=== PATIENT | female | born 1975 | race Caucasian/White ===

== ENCOUNTER 2016-04-05 22:58 | Inpatient (IN) | payer OTHER ==
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
--- NOTE | 2016-04-06 00:03 | DX ---
Left Foot, 3 Views, at 11:31 p.m. Clinical History: 40-year-old female with pain. Comparison Study: None. Findings: There is soft tissue swelling involving the distal extremity, most pronounced over the mid and forefoot. There is no ankle joint effusion appreciated. The bone mineralization is preserved, wit h no marginal erosion. There is no fracture or dislocation identified. The tarsometatarsal alignment is anatomic. There is an unfused os peroneum lateral to the cuboid. There is a normal-variant bone is land associated with the 5th digit distal phalanx. There are tiny posterior calcaneal enthesophytes a t the Achilles tendon and plantar aponeurosis insertion points. Impression: Soft tissue swelling, with no acute osseous abnormality identified.
--- NOTE | 2016-04-06 00:18 | US ---
Venous Duplex Doppler Study of the Left Lower Extremity Clinical Indications: 40-year-old female in the ED with left leg swelling. Rule out DVT. Technique: A high-frequency transducer was used for imaging and Doppler study of the deep veins of th e left leg, from the upper calf to the groin. Pulsed Doppler and color Doppler were utilized, along with various maneuvers, to assess flow in the deep veins. Cursory evaluation of the right common femo ral vein was obtained for comparison purposes, and is normal. Comparison Exam: None. Findings: The deep veins of the left groin, thigh, knee, and upper calf are well-displayed, and are normally compressible. Doppler flow patterns are unremarkable. There is no evidence of deep venous thrombosis. There is normal compression of the greater saphenous vein, without superficial thrombosis . The popliteal fossa is unremarkable. Impression: There is no sonographic evidence of deep or superficial vein thrombosis in the left leg. Results were conveyed to Martín Lee PA-C. A test result has been communicated to a licensed care provider and documented in [facility], 12:15:18 A M, 04/06/2016, [employer] Message ID [id number].
[2016-04-06 00:25] LABS: % IMMATURE GRANULYOCYTES 0.2 % (0.0-1.1); ABSOLUTE IMMATURE GRANULOCYTES 0.03 10^3/uL (0.00-0.10); ADD DIFF? NO; ADD MORPH? NO; ADD SCAN? NO; ATYPICAL LYMPHOCYTE FLAG 10 (0-99); FRAGMENT RBC FLAG 0 (0-99); HEMATOCRIT 44.4 % (38.0-47.0); HEMOGLOBIN 14.9 g/dL (12.6-16.3); LEFT SHIFT FLG 0 (0-99); LIPEMIA HEMOLYSIS FLAG 80 (0-99); MEAN CELL HEMOGLOBIN 27.8 pg (27.9-34.1); MEAN CELL HEMOGLOBIN CONCENTR. 33.6 g/dL (32.4-36.7); MEAN CELL VOLUME 82.8 fL (81.5-99.8); MEAN PLATELET VOLUME 11.7 fL (8.7-11.7); PLATELET CLUMPS FLAG 0 (0-99); PLATELET COUNT 216 10^3/uL (150-400); RED BLOOD CELL COUNT 5.36 10^6/uL (4.18-5.33); RED CELL DISTRIBUTION WIDTH 14.5 % (11.5-15.2)
[2016-04-06] MEDS ORDERED: VANCOMYCIN HCL/NORMAL SALINE 250 ML IV ONE (00:45)
[2016-04-06 00:47] LABS: ANION GAP 11 mEq/L (8-16); C-REACTIVE PROTEIN 69.6 mg/L (<10.0); CALCIUM 8.8 mg/dL (8.5-10.4); CARBON DIOXIDE 26 mEq/l (22-31); CHLORIDE 99 mEq/L (97-110); CREATININE 0.6 mg/dL (0.6-1.0); GLOMERULAR FILTRATION RATE > 60; GLUCOSE 111 mg/dL (70-100); SODIUM 136 mEq/L (134-144)
[2016-04-06 00:48] LABS: SEDIMENTATION RATE 16 MM/HR (0-20)
[2016-04-06] MEDS ORDERED: CLINDAMYCIN 150MG PREPACK#6 BTL TAKEHOME ONE ×2 (01:18→01:19)
[2016-04-06] MEDS ORDERED: CLINDAMYCIN 600 MG/DEXTROSE 50 ML IV ONE (02:07)
[2016-04-06] MEDS ORDERED: NS 1,000 ML IV SCH (03:15)
--- NOTE | 2016-04-06 03:23 | PDGENHP ---
History and Physical - Chief Complaint foot pain - History of Present Illness Patient is 40/F with Madelyn Danlos Syndrome, chronic pain with chronic opioid dependence and IVDU who presents to the ED complaining of L foot pain. Patient states symptoms started about 4 days ago with swelling of the dorsum of her foot , the following day the area became red and painful and over the next 3 days pain continued to intensify. She denies any obvious trauma to the area, but also states she frequently sleep walks and could have traumatized the foot without recognizing it. Also, patient reports crushing oxycodone and injecting it, and sometimes heroin, occasionally using the veins in her feet, although she denies doing this recently. On arrival to the ED, patient was afebrile, but tachycardic, otherwise hemodynamically stable. Labs revealed leukocytosis, elevated CRP. LE doppler was negative for DVT and L foot x-ray did not show evidence of fracture or osteomyelitis. She was given IVF resuscitation, Vancomycin and IV clindamycin, and admitted to the hospitalist service for further management. History Information - Allergies/Home Medication List Allergies/Adverse Reactions: No Known Allergies Allergy (Unverified 04/05/16 23:03) Home Medications: Cyclobenzaprine [Flexeril 10 MG (*)] 10 - 20 mg PO TID PRN 12/30/14 [Last Taken 12/27/14] Pregabalin [Lyrica] 150 mg PO DAILY 12/30/14 [Last Taken 12/27/14] Pregabalin [Lyrica] 300 mg PO HS 12/30/14 [Last Taken 12/27/14] fentaNYL [Duragesic 100 MCG Patch (*)] 100 mcg TD Q48H 12/30/14 [Last Taken 11/04] oxyCODONE IR [Oxycodone Ir (*)] 15 - 30 mg PO HS PRN 12/30/14 [Last Taken ] oxyCODONE IR [Oxycodone Ir (*)] 15 mg PO BID@, PRN 12/30/14 [Last Taken 10/04] Clonidine 12/05/15 [Last Taken Unknown] Flexeril 04/05/16 [Last Taken Unknown] Tizanidine HCl 04/05/16 [Last Taken Unknown] I have personally reviewed and updated: family history, medical history, social history, surgical history - Past Medical History Additional medical history: Madelyn Danlos Syndrome. Chronic pain syndrome. chronic opioid dependence/abuse. degenerative disc disease. chronic migraine headache. ? crohn's disease, reportedly well controlled - Surgical History Additional surgical history: hysterectomy with BSO. appendectomy. b/l breast augmentation - Family History Additional family history: M: breast ca, HTN - Social History Smoking Status: Light smoker (1/2 PPD currently, formerly 1-2 PPD x 20 years) Alcohol Use: None Drug Use: Heroin (heroin and opioid pill abuse with active IV use) Additional social history: Patient currently lives alone in [place]. Currently on disability, formerly worked in sales. Review of Systems ROS: 10pt was reviewed & negative except for what was stated in HPI & below Physical Exam Temp Pulse Resp BP Pulse Ox 36.8 C 102 H 18 102/58 L 97 04/06/16 02:46 04/06/16 02:46 04/06/16 02:46 04/06/16 02:46 04/06/16 02:46 Constitutional: no apparent distress, appears nourished, not in pain Eyes: PERRL, anicteric sclera, EOMI Ears, Nose, Mouth, Throat: moist mucous membranes, hearing normal, ears appear normal, no oral mucosal ulcers Cardiovascular: regular rate and rhythym, no murmur, rub, or gallop, pulses symmetric bilaterally, tachycardia, edema (L foot 2+ edema to ankle), No JVD Peripheral Pulses: 2+: dorsalis-pedis (R), dorsalis-pedis (L) Respiratory: no respiratory distress, no rales or rhonchi, clear to auscultation Gastrointestinal: normoactive bowel sounds, soft, non-tender abdomen, no palpable masses, No hepatosplenomegally, No guarding, No rebound Genitourinary: no bladder fullness, no bladder tenderness Skin: other (L foot: 2+ pitting edema, dorsum of foot with erythema, warmth and tenderness to palpation, extending to proximal ankle) Musculoskeletal: full muscle strength, no muscle tenderness, normal joint ROM, no joint effusions Neurologic: AAOx3, sensation intact bilaterally, CN II-XII Intact, No weakness, No numbness Lab Data & Imaging Review 04/06/16 05:04 04/06/16 05:04 WBC 13.08 10^3/uL (3.80-9.50) H 04/06/16 00:10 RBC 5.36 10^6/uL (4.18-5.33) H 04/06/16 00:10 Hgb 14.9 g/dL (12.6-16.3) 04/06/16 00:10 Hct 44.4 % (38.0-47.0) 04/06/16 00:10 MCV 82.8 fL (81.5-99.8) 04/06/16 00:10 MCH 27.8 pg (27.9-34.1) L 04/06/16 00:10 MCHC 33.6 g/dL (32.4-36.7) 04/06/16 00:10 RDW 14.5 % (11.5-15.2) 04/06/16 00:10 Plt Count 216 10^3/uL (150-400) 04/06/16 00:10 MPV 11.7 fL (8.7-11.7) 04/06/16 00:10 Neut % (Auto) 68.4 % (39.3-74.2) 04/06/16 00:10 Lymph % (Auto) 21.1 % (15.0-45.0) 04/06/16 00:10 [place] % (Auto) 7.0 % (4.5-13.0) 04/06/16 00:10 Eos % (Auto) 2.8 % (0.6-7.6) 04/06/16 00:10 Baso % (Auto) 0.5 % (0.3-1.7) 04/06/16 00:10 Nucleat RBC Rel Count 0.0 % (0.0-0.2) 04/06/16 00:10 Absolute Neuts (auto) 8.94 10^3/uL (1.70-6.50) H 04/06/16 00:10 Absolute Lymphs (auto) 2.76 10^3/uL (1.00-3.00) 04/06/16 00:10 Absolute Monos (auto) 0.91 10^3/uL (0.30-0.80) H 04/06/16 00:10 Absolute Eos (auto) 0.37 10^3/uL (0.03-0.40) 04/06/16 00:10 Absolute Basos (auto) 0.07 10^3/uL (0.02-0.10) 04/06/16 00:10 Absolute Nucleated RBC 0.00 10^3/uL (0-0.01) 04/06/16 00:10 Immature Gran % 0.2 % (0.0-1.1) 04/06/16 00:10 Immature Gran # 0.03 10^3/uL (0.00-0.10) 04/06/16 00:10 ESR 16 MM/HR (0-20) 04/06/16 00:10 Sodium 136 mEq/L (134-144) 04/06/16 00:10 Potassium 4.0 mEq/L (3.5-5.2) 04/06/16 00:10 Chloride 99 mEq/L (97-110) 04/06/16 00:10 Carbon Dioxide 26 mEq/l (22-31) 04/06/16 00:10 Anion Gap 11 mEq/L (8-16) 04/06/16 00:10 BUN 11 mg/dL (7-23) 04/06/16 00:10 Creatinine 0.6 mg/dL (0.6-1.0) 04/06/16 00:10 Estimated GFR > 60 04/06/16 00:10 Glucose 111 mg/dL (70-100) H 04/06/16 00:10 Calcium 8.8 mg/dL (8.5-10.4) 04/06/16 00:10 Creatine Kinase 38 IU/L (0-156) 04/06/16 00:10 C-Reactive Protein 69.6 mg/L (<10.0) H 04/06/16 00:10 Visualized and Interpreted imaging results: Yes Interpretation: L foot: no obvious bony abnormality. LE doppler: neg for DVT Assessment & Plan Assessment: Patient is 40/F with EDS, chronic pain and chronic opioid use, with active IV drug abuse who presents to the ED with L foot pain, swelling and erythema, consistent with acute cellulitis. Plan: # sepsis secondary to L foot cellulitis Patient presents with tachycardia, leukocytosis and L foot cellulitis as source of infection, consistent with sepsis. No evidence of end organ damage on presentation. Patient cultured and given IV antibiotics in ED. - f/u blood cultures - cont Clindamycin 600 IV q6h - pain control with tylenol prn - IVF: NS @ 100 cc/hr - check lactic acid # chronic pain, chronic opioid abuse, IVDU Patient acknowledges IVDU is a problem, but states she only uses IV when her MD tries to down-titrate her prescribed opioids. PDMP site checked, seems patient was last prescribed opioids in 12/2015 (query report in paper chart). Will try to avoid opioid pain meds during this admission and refer to addiction services on discharge. - once confirmed, can continue patient's non-opioid pain med regimen # dispo: admit under observation status # full code
[2016-04-06 05:13] LABS: % IMMATURE GRANULYOCYTES 0.3 % (0.0-1.1); ABSOLUTE IMMATURE GRANULOCYTES 0.04 10^3/uL (0.00-0.10); ADD DIFF? NO; ADD MORPH? NO; ADD SCAN? NO; ATYPICAL LYMPHOCYTE FLAG 10 (0-99); FRAGMENT RBC FLAG 0 (0-99); HEMATOCRIT 38.2 % (38.0-47.0); HEMOGLOBIN 12.6 g/dL (12.6-16.3); LEFT SHIFT FLG 0 (0-99); LIPEMIA HEMOLYSIS FLAG 80 (0-99); MEAN CELL HEMOGLOBIN 27.7 pg (27.9-34.1); MEAN PLATELET VOLUME 11.7 fL (8.7-11.7); PLATELET CLUMPS FLAG 0 (0-99); PLATELET COUNT 195 10^3/uL (150-400); RED BLOOD CELL COUNT 4.55 10^6/uL (4.18-5.33); RED CELL DISTRIBUTION WIDTH 14.6 % (11.5-15.2)
[2016-04-06] MEDS: CLINDAMYCIN 600 MG/DEXTROSE 50 ML IV SCH ×3 (05:18→21:18)
[2016-04-06 05:30] LABS: ALANINE AMINOTRANSFERASE 25 IU/L (9-52); ALBUMIN 2.9 g/dL (3.5-5.0); ALKALINE PHOSPHATASE 91 IU/L (38-126); ANION GAP 6 mEq/L (8-16); ASPARTATE AMINOTRANSFERASE 18 IU/L (14-46); BILIRUBIN,TOTAL 0.5 mg/dL (0.1-1.4); CALCIUM 7.8 mg/dL (8.5-10.4); CARBON DIOXIDE 26 mEq/l (22-31); CHLORIDE 105 mEq/L (97-110); CREATININE 0.6 mg/dL (0.6-1.0); GLOMERULAR FILTRATION RATE > 60; GLUCOSE 108 mg/dL (70-100); POTASSIUM 4.2 mEq/L (3.5-5.2); SODIUM 137 mEq/L (134-144); TOTAL PROTEIN 5.6 g/dL (6.3-8.2)
[2016-04-06] MEDS: NICOTINE 14 MG/24 HR PATCH TD SCH (08:07)
[2016-04-06] MEDS: ACETAMINOPHEN 500 MG TAB PO PRN ×2 (08:07→23:19)
[2016-04-06] MEDS ORDERED: KETOROLAC 30 MG/1 ML SDV IVP ONE (10:33)
[2016-04-06] MEDS ORDERED: ONDANSETRON DISINTEGRATING 4 MG TAB PO PRN (10:36)
[2016-04-06] MEDS ORDERED: fentaNYL 75 MCG PATCH TD SCH (11:00)
[2016-04-06] MEDS: NS W/ 20 KCl/L 1,000 ML IV SCH ×2 (11:15→21:28)
[2016-04-06] MEDS: PROMETHAZINE HCL 25 MG TAB PO PRN (11:15)
[2016-04-06] MEDS: oxyCODONE IR 15 MG TAB PO SCH ×2 (14:42→21:17)
[2016-04-06] MEDS: PREGABALIN 50 MG CAP PO SCH ×2 (14:42→21:17)
[2016-04-06] MEDS: KETOROLAC 15 MG/1 ML SDV IVP SCH ×2 (17:31→23:20)
[2016-04-06] MEDS: VANCOMYCIN HCL/NORMAL SALINE 250 ML IV SCH (17:32)
[2016-04-06] MEDS: NORTRIPTYLINE HCL 50 MG CAP PO SCH (21:27)
[2016-04-07] MEDS: KETOROLAC 15 MG/1 ML SDV IVP SCH ×3 (05:01→18:46)
[2016-04-07] MEDS: VANCOMYCIN HCL/NORMAL SALINE 250 ML IV SCH ×2 (05:02→18:46)
[2016-04-07] MEDS: CLINDAMYCIN 600 MG/DEXTROSE 50 ML IV SCH ×3 (05:02→20:49)
[2016-04-07] MEDS: PROMETHAZINE HCL 25 MG TAB PO PRN (05:07)
[2016-04-07 05:17] LABS: % IMMATURE GRANULYOCYTES 0.1 % (0.0-1.1); ABSOLUTE IMMATURE GRANULOCYTES 0.01 10^3/uL (0.00-0.10); ADD DIFF? NO; ADD MORPH? NO; ADD SCAN? NO; ATYPICAL LYMPHOCYTE FLAG 0 (0-99); FRAGMENT RBC FLAG 0 (0-99); HEMATOCRIT 35.7 % (38.0-47.0); HEMOGLOBIN 11.4 g/dL (12.6-16.3); LEFT SHIFT FLG 0 (0-99); LIPEMIA HEMOLYSIS FLAG 80 (0-99); MEAN CELL HEMOGLOBIN 27.6 pg (27.9-34.1); MEAN CELL HEMOGLOBIN CONCENTR. 31.9 g/dL (32.4-36.7); MEAN CELL VOLUME 86.4 fL (81.5-99.8); MEAN PLATELET VOLUME 11.7 fL (8.7-11.7); PLATELET CLUMPS FLAG 30 (0-99); PLATELET COUNT 147 10^3/uL (150-400); RED BLOOD CELL COUNT 4.13 10^6/uL (4.18-5.33); RED CELL DISTRIBUTION WIDTH 14.7 % (11.5-15.2)
[2016-04-07 05:28] LABS: ANION GAP 5 mEq/L (8-16); CALCIUM 7.9 mg/dL (8.5-10.4); CARBON DIOXIDE 27 mEq/l (22-31); CHLORIDE 109 mEq/L (97-110); CREATININE 0.6 mg/dL (0.6-1.0); GLOMERULAR FILTRATION RATE > 60; GLUCOSE 95 mg/dL (70-100); SODIUM 141 mEq/L (134-144)
[2016-04-07] MEDS: oxyCODONE IR 15 MG TAB PO PRN ×2 (06:15→16:16)
[2016-04-07] MEDS: PREGABALIN 50 MG CAP PO SCH ×3 (08:05→20:45)
[2016-04-07] MEDS: NORTRIPTYLINE HCL 50 MG CAP PO SCH ×2 (08:05→20:43)
[2016-04-07] MEDS: NICOTINE 14 MG/24 HR PATCH TD SCH (08:06)
--- NOTE | 2016-04-07 15:31 | HOSPPROG ---
Hospitalist Progress Note Assessment/Plan: 40-year-old female admitted with a left foot abscess. She has a history of narcotic dependence and a history of IV drug abuse. She denies injection into the left foot. -left foot cellulitis and possible abscess. The area of redness may be extending beyond the initial area as noted by markings on her foot. There is no ascending lymphangitis or cellulitis although the area is tender and possibly fluctuant on the dorsum of the foot. She is receiving clindamycin and vancomycin with a trough on vancomycin tomorrow morning. An MRI with and without contrast will be done to assess for abscess and Dr. Arce for podiatry will see the patient today. -narcotic dependence. We are continuing her usual pain medication regime without of increase in her narcotic use. Subjective: Reports that the foot is tender and painful but less so than previously. No complaints of fever cough shortness of breath chest pain nausea or vomiting. There is no history that she has had tremulousness agitation confusion or any signs of withdrawal. Objective: Vital Signs Temp Pulse Resp BP Pulse Ox 36.8 C 104 H 16 122/79 H 94 04/07/16 15:20 04/07/16 15:20 04/07/16 15:20 04/07/16 15:20 04/07/16 15:20 Laboratory Results 04/07/16 04:41 04/07/16 04:41 04/06/16 04/07/16 04/08/16 05:59 05:59 05:59 Intake Total 450 Balance 450 Laboratory Tests 04/06/16 04/07/16 00:10 04:41 WBC 13.08 H 8.41 Hgb 14.9 11.4 L - Time Spent With Patient Time Spent with Patient: greater than 35 minutes Time Spent with Patient: Greater than 35 minutes spent on this patients care, greater than 50% of time spent counseling, educating, and coordinating care regarding the above mentioned plan. - Physical Exam Constitutional: no apparent distress Eyes: PERRL, anicteric sclera Ears, Nose, Mouth, Throat: moist mucous membranes, hearing normal Cardiovascular: regular rate and rhythym, no murmur, rub, or gallop, systolic murmur Respiratory: no respiratory distress, no rales or rhonchi, clear to auscultation Gastrointestinal: normoactive bowel sounds, soft, non-tender abdomen, no palpable masses Genitourinary: no bladder fullness Skin: other (Left foot shows erythema redness and warmth on the dorsum and plantar surface of the foot. There is it is possibly fluctuant on the dorsum of the foot and extends to the level of the ankle. The area of erythema does not extend beyond the areas original markings admission.) Neurologic: AAOx3 ICD10 Worksheet Patient Problems: Problems Problem Status Diagnosed Cellulitis of foot without toes, left Acute Foot pain, left Acute Tachycardia Acute
[2016-04-07] MEDS ORDERED: GADOBUTROL 10 ML VIAL IVP ONE (18:03)
--- NOTE | 2016-04-07 18:25 | GCON ---
[f rep st] CONSULTATION I got a call from Dr. Phillip to consult with patient, Adeline Camarena, regarding swelling , cellulitis , suspected infection of her foot. Xrays and history reviewed. I presented to the hospital at 5:45 pm and patient had just been brought to MRI for a study on her foot. I will follow up with the MRI report and visit with the patient tomorrow /[id number]/MODL MTDD
--- NOTE | 2016-04-07 19:37 | MR ---
MRI left foot without and with gadolinium enhancement History: Swelling and rapidly progressing erythema of left foot. Technique: Axial, coronal, and sagittal images were obtained using T1-weighted, fat-suppressed T2-emily ghted, and inversion recovery sequences. Fat-suppressed T1-weighted images were repeated after uneven tful intravenous administration of 5.5 mL of Gadavist. Findings: Dorsal, lateral, and medial soft tissues of the left foot are edematous. A lobulated focus of fluid intensity overlies the extensor tendons in the left mid foot. This collection measures up t o 2.8 cm transverse x 3.2 cm longitudinal x 0.9 cm short axis. The collection is very closely apposed to the extensor tendons, with slight interdigitation around the tendons. However, the proximal and d istal portions the tendon sheaths have no accumulation of fluid, militating against suppurative tenos ynovitis. Thin margins of the collection have mild enhancement, compatible with abscess . Bones have normal signal, with no evidence of osteomyelitis. Joint spaces have normal thickness. Achilles tendon and plantar fascia are normal. The sole of the foot is normal. Impression: Soft tissue abscess at anterior margin of extensor tendons of the midfoot.
[2016-04-07] MEDS: ENOXAPARIN 40 MG/0.4 ML SYR SC SCH (20:49)
[2016-04-07] MEDS ORDERED: HYDROmorphONE/DILAUDID 2 MG/ML SYR IVP ONE (21:07)
[2016-04-08] MEDS: KETOROLAC 15 MG/1 ML SDV IVP SCH ×5 (00:24→23:25)
[2016-04-08 05:35] LABS: % IMMATURE GRANULYOCYTES 0.1 % (0.0-1.1); ABSOLUTE IMMATURE GRANULOCYTES 0.01 10^3/uL (0.00-0.10); ADD DIFF? NO; ADD MORPH? NO; ADD SCAN? NO; ATYPICAL LYMPHOCYTE FLAG 30 (0-99); FRAGMENT RBC FLAG 0 (0-99); HEMOGLOBIN 10.6 g/dL (12.6-16.3); LEFT SHIFT FLG 10 (0-99); LIPEMIA HEMOLYSIS FLAG 80 (0-99); MEAN CELL HEMOGLOBIN 27.3 pg (27.9-34.1); MEAN CELL HEMOGLOBIN CONCENTR. 32.1 g/dL (32.4-36.7); MEAN CELL VOLUME 85.1 fL (81.5-99.8); MEAN PLATELET VOLUME 12.2 fL (8.7-11.7); PLATELET CLUMPS FLAG 20 (0-99); PLATELET COUNT 154 10^3/uL (150-400); RED BLOOD CELL COUNT 3.88 10^6/uL (4.18-5.33); RED CELL DISTRIBUTION WIDTH 14.6 % (11.5-15.2)
[2016-04-08] MEDS: oxyCODONE IR 15 MG TAB PO PRN (05:52)
[2016-04-08] MEDS: CLINDAMYCIN 600 MG/DEXTROSE 50 ML IV SCH ×3 (06:29→21:07)
[2016-04-08] MEDS: HYDROmorphONE/DILAUDID 1 MG/ML SYR IVP PRN ×2 (06:33→13:56)
[2016-04-08] MEDS: VANCOMYCIN HCL/NORMAL SALINE 250 ML IV SCH ×2 (07:22→18:03)
[2016-04-08] MEDS ORDERED: ROPIVACAINE HCL 20 MG/10 ML INJ EP ONE (10:28)
[2016-04-08] MEDS ORDERED: BUPIVACAINE 0.5% 30 ML SDV ONE (10:28)
[2016-04-08] MEDS ORDERED: POLYMYXIN B SULFATE 500,000 UNIT/10 ML SYR IRR ONE (10:28)
[2016-04-08] MEDS ORDERED: DEXAMETHASONE 4 MG/ML VIAL ONE (10:28)
[2016-04-08] MEDS ORDERED: PROPOFOL 200 MG/20 ML VIAL ONE (11:23)
[2016-04-08] MEDS ORDERED: LIDOCAINE 2% 100 MG/5 ML SYR IVP ONE (11:23)
[2016-04-08] MEDS ORDERED: METOCLOPRAMIDE 10 MG/2 ML VIAL ONE (11:23)
[2016-04-08] MEDS ORDERED: fentaNYL 100 MCG/2 ML INJ ONE (11:23)
[2016-04-08] MEDS ORDERED: MIDAZOLAM 2 MG/2 ML VIAL ONE (11:26)
[2016-04-08] MEDS ORDERED: LIDOCAINE 1% 30 ML SDV ONE (11:38)
[2016-04-08] MEDS ORDERED: VANCOMYCIN 1 GM VIAL IV ONE (11:38)
--- NOTE | 2016-04-08 14:17 | HOSPPROG ---
Hospitalist Progress Note Assessment/Plan: # L foot cellulitis/abscess s/p I&D today - cont vanc/clinda - follow culture # surreptitious IVDU in hospital - discussed with patient - security has searched her room and removed all materials - check HIV/hepatitis - discussed with patient # acute on chronic pain with continuous narcotic use - will cont her outpatient narcotics with slight increase given acute pain - pain "all over body" - oxy, fentanyl patch, toradol # FCFT # vte ppx - lovenox ## discussed with Dr Arce - I&D today MRI reviewed Subjective: comfortable; nursing found heroin and needles in her room Objective: Vital Signs Temp Pulse Resp BP Pulse Ox 36.4 C 77 14 125/82 H 98 04/08/16 13:25 04/08/16 13:25 04/08/16 13:25 04/08/16 13:25 04/08/16 13:25 Laboratory Results 04/08/16 04:54 04/07/16 04:41 04/07/16 04/08/16 04/09/16 05:59 05:59 05:59 Intake Total 450 1100 Output Total 4 Balance 450 1100 -4 - Physical Exam Constitutional: no apparent distress Cardiovascular: regular rate and rhythym, no murmur, rub, or gallop Respiratory: no respiratory distress, no rales or rhonchi, clear to auscultation Gastrointestinal: normoactive bowel sounds, soft, non-tender abdomen, no palpable masses Musculoskeletal: other (L foot in surgical dressing) ICD10 Worksheet Patient Problems: Problems Problem Status Diagnosed Cellulitis of foot without toes, left Acute Foot pain, left Acute Tachycardia Acute
[2016-04-08] MEDS: NORTRIPTYLINE HCL 50 MG CAP PO SCH ×2 (15:18→21:07)
[2016-04-08] MEDS: PREGABALIN 50 MG CAP PO SCH ×3 (15:18→21:07)
[2016-04-08] MEDS: NICOTINE 14 MG/24 HR PATCH TD SCH (15:20)
[2016-04-08] MEDS: oxyCODONE IR 5 MG TAB PO PRN (15:46)
[2016-04-08] MEDS ORDERED: HYDROmorphONE/DILAUDID 1 MG/ML SYR IVP PRN (16:12)
--- NOTE | 2016-04-08 16:28 | GCON ---
[f rep st] CONSULTATION CONSULTATION AND PREOPERATIVE HISTORY AND PHYSICAL REASON FOR CONSULTATION: Dr. Phillip contacted me yesterday requesting a consult left foot infection possible abscess. He related a history of intravenous drug use; however, the patient denied recently injecting her foot. No obvious open skin lesions, injection points or ulceration. MRI study ordered. I presented yesterday evening to see her; however, she was getting an MRI study at that time performed. I met with the patient this morning. She reported increased pain in her foot. She denied any injury to her foot, denied any incident to cause the infection. She seemed lethargic, ambivalent and did not provide me with much of a history. In review of her chart, history remarkable for chronic opiate dependence, chronic pain, Madelyn-Danlos syndrome. MRI report reviewed, and an abscess is present in the dorsal aspect of the left midfoot measuring approximately 3 x 3 x 1 cm in size involving the extensor tendons. ALLERGIES: No known drug allergies. MEDICATIONS: Oxycodone, Lyrica, Zofran, Celebrex, Dilaudid, nicotine, Pamelor, fentanyl. She was on Lovenox; however, appears that it was held on April 07. PAST MEDICAL HISTORY, SURGICAL HISTORY, FAMILY HISTORY, SOCIAL HISTORY: Reviewed. PHYSICAL EXAMINATION: GENERAL: A 40-year-old female, not fully oriented. LOWER EXTREMITIES: Left foot significant edema and erythema localized to the dorsal midfoot, pain with palpation, subcutaneous fullness. Erythema extending 2 -3 cm proximal to ankle and to base of digits. Some skin wrinkling proximal and distal to the mid foot, indicating that likely there has been somewhat of a reduction in edema and erythema since her admission. No pain noted plantar foot. Neurovascular status is intact. No gross deformity noted. IMAGING: MRI reviewed, abscess noted left mid foot involving the extensor tendons. ASSESSMENT: Infection with abscess dorsal foot, left. Since admission and receiving clindamycin and vancomycin, it appears white blood cell count has reduced from 13 to now 7.34. However, MRI findings reveal an abscess signficant inflammation noted, incision and drainage are indicated. PLAN: Incision and drainage, left foot. The patient has been n.p.o. since this morning. I reviewed with the patient the nature of the procedure, postoperative course, potential risks and benefits, including but not limited to, progression of infection, bone infection, osteomyelitis, loss of limb. I have advised that she keep her foot clean and dry from bathing for estimated 2 weeks or until given permission. After all questions were entertained and answered, consent form was signed. Patient is scheduled for surgery at 11:00 a.m. this morning in the OR. /[id number]/MODL MTDD
[2016-04-08] MEDS ORDERED: fentaNYL 75 MCG PATCH TD SCH (16:30)
--- NOTE | 2016-04-08 19:25 | GOP ---
[f rep st] OPERATIVE REPORT DATE OF OPERATION: 04/08/2016 SURGEON: Mare Arce DPM ANESTHESIA: MAC. ANESTHESIOLOGIST: Marcos Albert M.D. PREOPERATIVE DIAGNOSIS: Left foot infection with abscess. POSTOPERATIVE DIAGNOSIS: Left foot infection with abscess. PROCEDURE PERFORMED: Incision and drainage of abscess, left midfoot. FINDINGS: ESTIMATED BLOOD LOSS: Less than 3 cc. DESCRIPTION OF PROCEDURE: The patient was brought into the operating room, placed on the operating table in the supine position. Intravenous sedation administered by the anesthesiologist. A peripheral nerve block was obtained utilizing a total of 20 cc of a 1:1 mix of 0.2% ropivacaine plain, 0.5% Marcaine plain and 1% lidocaine plain. The lower extremity was prepped and draped in the usual sterile manner. Attention was directed toward the dorsal lateral midfoot where a 2.5 cm incision was created. The incision was carefully deepened, and purulent drainage was immediately noted. With probing of the wound, there was tracking that extended approximately 2 cm distally, 3 cm laterally, and then approximately 3 cm proximally toward the ankle. The wound was copiously irrigated with bacitracin and vancomycin irrigation pulse lavage, a total of 3 L. Three sinus tracts were lightly packed with iodoform gauze. Skin was closed with 3-0 nylon in a horizontal mattress fashion as well as 4-0 Prolene in a simple interrupted suture fashion. A wet to dry type of sterile saline type of bandage applied reinforced with an Prince bandage. Patient tolerated the procedure and anesthesia well and left the operating room with vital signs stable and vascular status intact to all digits. There were no intraoperative complications. ESTIMATED AMOUNT OF PURULENT DRAINAGE: Exsanguinated approximately 4-5 cc. Pathology : None Labs: Wound cultures: Aerobic, anaerobic, fungal and TB cultures. In postop recovery, Adeline is doing well. She will to return to her room on the floor. Will resume all medications that she was taking preoperatively. PROGNOSIS: Good. /[id number]/MODL MTDD
[2016-04-08] MEDS: ENOXAPARIN 40 MG/0.4 ML SYR SC SCH (21:08)
[2016-04-09] MEDS: VANCOMYCIN HCL/NORMAL SALINE 250 ML IV SCH ×2 (04:55→17:35)
[2016-04-09 05:34] LABS: % IMMATURE GRANULYOCYTES 0.4 % (0.0-1.1); ABSOLUTE IMMATURE GRANULOCYTES 0.03 10^3/uL (0.00-0.10); ADD DIFF? NO; ADD MORPH? NO; ADD SCAN? NO; ATYPICAL LYMPHOCYTE FLAG 10 (0-99); FRAGMENT RBC FLAG 0 (0-99); HEMATOCRIT 35.7 % (38.0-47.0); LEFT SHIFT FLG 0 (0-99); LIPEMIA HEMOLYSIS FLAG 80 (0-99); MEAN CELL HEMOGLOBIN 27.1 pg (27.9-34.1); MEAN CELL HEMOGLOBIN CONCENTR. 33.6 g/dL (32.4-36.7); MEAN CELL VOLUME 80.6 fL (81.5-99.8); MEAN PLATELET VOLUME 11.9 fL (8.7-11.7); PLATELET CLUMPS FLAG 0 (0-99); PLATELET COUNT 219 10^3/uL (150-400); RED BLOOD CELL COUNT 4.43 10^6/uL (4.18-5.33)
[2016-04-09] MEDS: CLINDAMYCIN 600 MG/DEXTROSE 50 ML IV SCH (06:04)
[2016-04-09] MEDS: KETOROLAC 15 MG/1 ML SDV IVP SCH ×3 (06:04→17:35)
[2016-04-09] MEDS: NICOTINE 14 MG/24 HR PATCH TD SCH (10:23)
[2016-04-09] MEDS: PREGABALIN 50 MG CAP PO SCH ×3 (10:24→20:17)
[2016-04-09] MEDS: NORTRIPTYLINE HCL 50 MG CAP PO SCH ×2 (10:26→20:17)
[2016-04-09] MEDS ORDERED: hydrOXYzine HCL 50 MG TAB PO ONE (12:30)
--- NOTE | 2016-04-09 13:00 | HOSPPROG ---
Hospitalist Progress Note Assessment/Plan: # L foot cellulitis/abscess s/p I&D today; kristel rosa in culture - follow sensitivities - cont vanc, stop clinda # surreptitious IVDU in hospital/opiate withdrawal - discussed with patient - security has searched her room and removed all materials - check HIV/hepatitis - discussed with patient # acute on chronic pain with continuous narcotic use - will cont her outpatient narcotics with slight increase given acute pain - pain "all over body" - oxy, fentanyl patch, toradol, dilaudid IV # FCFT # vte ppx - lovenox ## high risk needing IV narcotics Subjective: ongoing pain but better controlled today Objective: Vital Signs Temp Pulse Resp BP Pulse Ox 36.5 C 85 24 H 110/68 95 04/09/16 12:00 04/09/16 12:00 04/09/16 12:00 04/09/16 12:00 04/09/16 12:00 Microbiology 04/08/16 11:50 Gram Stain - Final Foot - Swab Laboratory Results 04/09/16 04:41 04/07/16 04:41 04/08/16 04/09/16 04/10/16 05:59 05:59 05:59 Intake Total 1100 1950 350 Output Total 2003 600 Balance 1100 -54 -250 - Physical Exam Constitutional: no apparent distress, appears nourished Cardiovascular: regular rate and rhythym, no murmur, rub, or gallop, systolic murmur Respiratory: no respiratory distress, no rales or rhonchi, clear to auscultation Gastrointestinal: normoactive bowel sounds, soft, non-tender abdomen, no palpable masses ICD10 Worksheet Patient Problems: Problems Problem Status Diagnosed Cellulitis of foot without toes, left Acute Foot pain, left Acute Tachycardia Acute
[2016-04-09] MEDS: oxyCODONE IR 5 MG TAB PO PRN (20:17)
[2016-04-09] MEDS: ENOXAPARIN 40 MG/0.4 ML SYR SC SCH ×2 (20:20→21:24)
[2016-04-09] MEDS ORDERED: hydrOXYzine HCL 50 MG TAB PO PRN (21:00)
[2016-04-10] MEDS: KETOROLAC 15 MG/1 ML SDV IVP SCH ×5 (00:16→23:24)
--- NOTE | 2016-04-10 02:45 | GPROG ---
[f rep st] PROGRESS NOTE SUBJECTIVE: Patient relates foot feeling significantly better. She reported much less pain. OBJECTIVE: Dressing mildly soiled. Less erythema and less edema noted, however , still very present. Cultures so far revealing Staph aureus. Awaiting final results. ASSESSMENT/PLAN: 1 day status post incision and drainage, left foot, progressing satisfactorily. Recommend continue IV antibiotics. Drains removed, wet-to-dry sterile saline dressing applied. Wound care at this point should consist of sterile dressing changes utilizing 4 x 4 gauze and Kerlix. No antibiotic creams or ointments. Upon discharge, the patient should go home with a clean dry sterile bandage and should leave intact until she sees me at the office. Recommending a followup visit on April 14. I have reviewed with the patient the importance of keeping the dressing clean, dry, and intact, and not to get the wound wet. She is to remain nonweightbearing, to utilize a postoperative shoe, and limit her activities. Dr. Chacon had the opportunity to look at the wound, and will follow up with her tomorrow, await sensitivities, and if possible, switch her to oral antibiotics to allow her to go home. If any questions or concerns, to contact me. /[id number]/MODL MTDD
[2016-04-10] MEDS: VANCOMYCIN HCL/NORMAL SALINE 250 ML IV SCH ×2 (06:17→16:59)
[2016-04-10] MEDS: NORTRIPTYLINE HCL 50 MG CAP PO SCH ×2 (07:53→20:50)
[2016-04-10] MEDS: PREGABALIN 50 MG CAP PO SCH ×3 (07:54→20:50)
[2016-04-10] MEDS: NICOTINE 14 MG/24 HR PATCH TD SCH (07:56)
[2016-04-10] MEDS: oxyCODONE IR 5 MG TAB PO PRN ×3 (08:07→20:50)
--- NOTE | 2016-04-10 12:41 | HOSPPROG ---
Hospitalist Progress Note Assessment/Plan: # MRSA L foot cellulitis/abscess s/p I&D; - cont vanc, likely doxy on dc # surreptitious IVDU in hospital/opiate withdrawal - discussed with patient - security has searched her room and removed all materials - HIV/hepatitis # acute on chronic pain with continuous narcotic use - will cont her outpatient narcotics with slight increase given acute pain - pain "all over body" - oxy, fentanyl patch, toradol, dilaudid IV # FCFT # vte ppx - lovenox ## mod risk Subjective: foot pain worse today Objective: Vital Signs Temp Pulse Resp BP Pulse Ox 37.0 C 81 14 112/88 H 95 04/10/16 08:00 04/10/16 08:00 04/10/16 08:00 04/10/16 08:00 04/10/16 08:00 Microbiology 04/08/16 11:50 Gram Stain - Final Foot - Swab 04/08/16 11:50 Mycobacterial Smear (AGUSTÍN) - Final Foot - Tissue Laboratory Results 04/09/16 04:41 04/07/16 04:41 04/09/16 04/10/16 04/11/16 05:59 05:59 05:59 Intake Total 1949 1350 Output Total 2003 1099 Balance -54 250 - Physical Exam Constitutional: no apparent distress, appears nourished Cardiovascular: regular rate and rhythym, no murmur, rub, or gallop Respiratory: no respiratory distress, no rales or rhonchi, clear to auscultation Gastrointestinal: normoactive bowel sounds, soft, non-tender abdomen, no palpable masses ICD10 Worksheet Patient Problems: Problems Problem Status Diagnosed Cellulitis of foot without toes, left Acute Foot pain, left Acute MRSA (methicillin resistant Staphylococcus aureus) Acute 04/08/16 Tachycardia Acute
[2016-04-10] MEDS: ENOXAPARIN 40 MG/0.4 ML SYR SC SCH (20:51)
[2016-04-11 00:58] VITALS: TEMP 98.2
[2016-04-11] MEDS: oxyCODONE IR 5 MG TAB PO PRN (02:09)
[2016-04-11] MEDS: VANCOMYCIN HCL/NORMAL SALINE 250 ML IV SCH (04:47)
[2016-04-11] MEDS: KETOROLAC 15 MG/1 ML SDV IVP SCH (04:47)
[2016-04-11 05:18] LABS: % IMMATURE GRANULYOCYTES 0.3 % (0.0-1.1); ABSOLUTE IMMATURE GRANULOCYTES 0.02 10^3/uL (0.00-0.10); ADD DIFF? NO; ADD MORPH? NO; ADD SCAN? NO; ATYPICAL LYMPHOCYTE FLAG 30 (0-99); FRAGMENT RBC FLAG 0 (0-99); HEMATOCRIT 37.4 % (38.0-47.0); HEMOGLOBIN 12.7 g/dL (12.6-16.3); LEFT SHIFT FLG 0 (0-99); LIPEMIA HEMOLYSIS FLAG 90 (0-99); MEAN CELL HEMOGLOBIN 27.4 pg (27.9-34.1); MEAN CELL VOLUME 80.8 fL (81.5-99.8); PLATELET CLUMPS FLAG 20 (0-99); PLATELET COUNT 273 10^3/uL (150-400); RED BLOOD CELL COUNT 4.63 10^6/uL (4.18-5.33); RED CELL DISTRIBUTION WIDTH 14.1 % (11.5-15.2)
[2016-04-11 05:48] LABS: ANION GAP 10 mEq/L (8-16); CALCIUM 8.4 mg/dL (8.5-10.4); CARBON DIOXIDE 27 mEq/l (22-31); CHLORIDE 105 mEq/L (97-110); CREATININE 0.6 mg/dL (0.6-1.0); GLOMERULAR FILTRATION RATE > 60; GLUCOSE 107 mg/dL (70-100); POTASSIUM 4.1 mEq/L (3.5-5.2); SODIUM 142 mEq/L (134-144)
[2016-04-11 08:10] VITALS: BP 122/72; PULSE 65; RESP 16; O2SAT 92
[2016-04-11] MEDS: PREGABALIN 50 MG CAP PO SCH (09:33)
[2016-04-11] MEDS: NORTRIPTYLINE HCL 50 MG CAP PO SCH (09:35)
[2016-04-11] MEDS: NICOTINE 14 MG/24 HR PATCH TD SCH (09:37)
--- NOTE | 2016-04-11 10:04 | GDS ---
[f rep st] DISCHARGE SUMMARY DIAGNOSES: 1. Left foot cellulitis/abscess, due to methicillin-resistant Staphylococcus aureus. 2. Surreptitious IV drug use while in the hospital. 3. Opiate withdrawal. 4. Acute on chronic pain. 5. Sepsis due to methicillin-resistant Staphylococcus aureus infection. CONSULTATIONS: Dr. Arce with Podiatry. HOSPITAL COURSE: A 40-year-old female who presented with a left foot cellulitis and abscess. She un derwent I and D on 04/08/[address] Arce. She had abscess that was tracking. She was able to alyx ve about 4-5 cc of purulent drainage. Culture of this grew MRSA susceptible to both doxycycline as w ell as Bactrim. She was treated with IV vancomycin as an inpatient with significant improvement in h er infection. On the day of discharge, she will be transitioned to doxycycline. She will be given a printed prescription for this, an approximate 10-day additional course, although this may be tapered based on her followup with Dr. Arce. She will have a followup appointment made for her on April 14, with Dr. Arce. FOLLOWUP: Dr. Arce on April 14, to evaluate cellulitis and abscess while on oral therapy. BILLING: I spent more than 30 minutes on the day of discharge coordinating care. /[id number]/MODL
== END 2016-04-11 12:32 | disposition home or self-care (01) | DRG 854 ==
LOC: F1N 04-06 03:17 → F3E 04-06 08:55 → OBSVTOIN 04-06 10:35 → INTOOBSV 04-06 10:35 → F3E 04-08 12:19
PROVIDERS: ADMIT Internal Medicine; ATTEND Internal Medicine
PROC: 0J9R0ZZ Drainage of Left Foot Subcutaneous Tissue and Fascia, Open Approach (ICD-10-PCS; principal; 2016-04-08 11:00)
DX: A41.01 Sepsis due to Methicillin susceptible Staphylococcus aureus (principal); L03.116 Cellulitis of left lower limb; L02.612 Cutaneous abscess of left foot; F11.23 Opioid dependence with withdrawal; Q79.6 Ehlers-Danlos syndromes; G89.29 Other chronic pain; Z72.0 Tobacco use
CPT/HCPCS: 96374; 97116-GP; 97161-GP; A9585; G8978-GP-CI; G8978-GP-CL; G8979-GP-CI; G8980-GP-CI; J1100; J1170; J1650; J1885; J2001; J2250; J2704; J2765; J2795; J3010; J3370

== ENCOUNTER 2016-04-23 13:00 | Emergency (ER) | payer OTHER ==
[2016-04-23 13:07] VITALS: RESP 16; O2SAT 97
[2016-04-23 13:30] LABS: COLOR AMBER; LEUKOCYTE ESTERASE,URINE NEGATIVE (NEGATIVE); NITRITE,URINE NEGATIVE (NEGATIVE)
[2016-04-23] MEDS ORDERED: NS 1,000 ML IV ONE ×2 (13:33→14:55)
[2016-04-23] MEDS ORDERED: ONDANSETRON 4 MG/2 ML VIAL IVP ONE (13:33)
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
[2016-04-23 14:09] LABS: % IMMATURE GRANULYOCYTES 0.4 % (0.0-1.1); ABSOLUTE IMMATURE GRANULOCYTES 0.05 10^3/uL (0.00-0.10); ADD DIFF? NO; ADD MORPH? NO; ADD SCAN? NO; ATYPICAL LYMPHOCYTE FLAG 10 (0-99); FRAGMENT RBC FLAG 0 (0-99); HEMATOCRIT 45.8 % (38.0-47.0); HEMOGLOBIN 15.5 g/dL (12.6-16.3); LEFT SHIFT FLG 0 (0-99); LIPEMIA HEMOLYSIS FLAG 90 (0-99); MEAN CELL HEMOGLOBIN 27.6 pg (27.9-34.1); MEAN CELL HEMOGLOBIN CONCENTR. 33.8 g/dL (32.4-36.7); MEAN CELL VOLUME 81.6 fL (81.5-99.8); PLATELET CLUMPS FLAG 30 (0-99); PLATELET COUNT 314 10^3/uL (150-400); RED BLOOD CELL COUNT 5.61 10^6/uL (4.18-5.33); RED CELL DISTRIBUTION WIDTH 15.1 % (11.5-15.2)
[2016-04-23 14:21] LABS: ALANINE AMINOTRANSFERASE 19 IU/L (9-52); ALBUMIN 3.9 g/dL (3.5-5.0); ALKALINE PHOSPHATASE 101 IU/L (38-126); ANION GAP 12 mEq/L (8-16); ASPARTATE AMINOTRANSFERASE 20 IU/L (14-46); BILIRUBIN,TOTAL 0.8 mg/dL (0.1-1.4); BILIRUBIN-CONJUGATED 0.3 mg/dL (0.0-0.5); BILIRUBIN-UNCONJUGATED 0.5 mg/dL (0.0-1.1); CALCIUM 9.2 mg/dL (8.5-10.4); CARBON DIOXIDE 25 mEq/l (22-31); CHLORIDE 100 mEq/L (97-110); CREATININE 0.7 mg/dL (0.6-1.0); GLOMERULAR FILTRATION RATE > 60; GLUCOSE 132 mg/dL (70-100); POTASSIUM 4.5 mEq/L (3.5-5.2); SODIUM 137 mEq/L (134-144); TOTAL PROTEIN 7.8 g/dL (6.3-8.2)
[2016-04-23] MEDS ORDERED: IOPAMIDOL (ISOVUE-300) 100 ML BTL IV ONE (14:39)
[2016-04-23] MEDS ORDERED: KETOROLAC 30 MG/1 ML SDV IVP ONE (14:55)
--- NOTE | 2016-04-23 15:26 | CT ---
CT Scan of the Abdomen and Pelvis (With Contrast) at 1502 hours History: Bilateral flank pain. Technique: Axial computed tomographic images of the abdomen and pelvis were obtained with the unevent ful intravenous administration of 80 mL Isovue-300 contrast. No oral or rectal contrast which limits the study. Dose reduction techniques were utilized. CT Abdomen Findings: Lung bases: No pleural effusion. Partial visualization of bilateral breast augmentation implants. Liver: Normal. Biliary system: No obstruction. Spleen: Normal. Pancreas: Normal. Adrenals: Normal. Kidneys: No obstruction or solid masses.. No definite evidence of pyelonephritis. Abdominal Aorta: Moderate atherosclerotic calcification of the aorta and iliac arteries without aneur ysm. No bowel obstruction, ascites, or significant retroperitoneal lymphadenopathy. Moderate stool in the right colon. CT Pelvis Findings: No pelvic fluid collections. L4-L5 right paramedian disk herniation resulting in [id number] central canal stenosis. No destructive osseous lesions. Impression: 1. L4-L5 right paramedian disk herniation resulting in moderate stenosis. 2. Moderate atherosclerotic aorta without aneurysm. 3. No urinary tract obstruction, nephrolithiasis, or definite pyelonephritis. 4. Constipation with moderate stool in the right colon. Findings and recommendations discussed with Emergency Department physician, Dr. Jose Grant at 15 20 hours today. Final report concurs with initial preliminary interpretation.
[2016-04-23 15:58] VITALS: BP 113/60; PULSE 110; TEMP 99.1
== END 2016-04-23 16:28 | disposition home or self-care (01) ==
DX: M54.5 Low back pain (principal); F17.200 Nicotine dependence, unspecified, uncomplicated
CPT/HCPCS: 74177; 96361; 96374; 96375; 99285; J1885; J2405; Q9967

== ENCOUNTER 2016-06-02 01:46 | Emergency (ER) | payer OTHER ==
[2016-06-02 01:55] VITALS: RESP 16
[2016-06-02] MEDS ORDERED: HYDROmorphONE/DILAUDID 1 MG/ML SYR IVP ONE (02:14)
[2016-06-02] MEDS ORDERED: ONDANSETRON 4 MG/2 ML VIAL IVP ONE (02:14)
[2016-06-02] MEDS ORDERED: NS 1,000 ML IV ONE (02:14)
[2016-06-02] MEDS ORDERED: CLINDAMYCIN 900 MG/DEXTROSE 50 ML IV ONE (02:15)
[2016-06-02] MEDS ORDERED: DEXAMETHASONE 10 MG/ML VIAL IVP ONE (02:15)
--- NOTE | 2016-06-02 02:20 | EDPHY ---
H & P Stated Complaint: significant R lower jaw swelling, pain, dysphagia HPI/ROS: HPI CHIEF COMPLAINT: Right lower jaw swelling and pain HISTORY OF PRESENT ILLNESS: This patient very pleasant 41-year-old female significant past medical history for IV drug abuse including heroin, history of methamphetamine use, and very poor dentition, who presents to the emergency room 2 o'clock in the morning with ongoing right lower jaw pain and swelling. Patient states that she had some pain to the lateral aspect of her right tongue yesterday woke up this morning with a little bit of right lower jaw line pain and swelling however the pain has progressed all day today now significant pain and swelling. No trouble swallowing, no trismus. No fever. No chest pain or shortness of breath. Of note this patient has extremely poor dentition and most likely cause of significant right jaw line swelling is Odontoid infection in nature. Past Medical History: Fibromyalgia, degenerative joint disease, scoliosis, Crohn's disease, Madelyn-Danlos syndrome Past Surgical History:No recent surgical history Social History: daily tobacco use, Family History: Noncontributory ROS REVIEW OF SYSTEMS: A comprehensive 10 point review of systems is otherwise negative aside from elements mentioned in the history of present illness. Exam Constitutional triage nursing summary reviewed, vital signs reviewed, awake/ alert. Eyes normal conjunctivae and sclera, EOMI, PERRLA. HENT oropharynx: Significant swelling to the right jaw line, induration, no signs of Eliseo's, uvula midline, posterior pharynx normal, very poor dentition , , moist mucus membranes, no epistaxis, neck supple/ no meningismus, no raccoon eyes. Respiratory clear to auscultation bilaterally, normal breath sounds, no respiratory distress, no wheezing. Cardiovascular rate normal, regular rhythm, no murmur, no edema, distal pulses normal. Gastrointestinal soft, non-tender, no rebound, no guarding, normal bowel sounds, no distension, no pulsatile mass. Genitourinary no CVA tenderness. Musculoskeletal no midline vertebral tenderness, full range of motion, no calf swelling, no tenderness of extremities, no meningismus, good pulses, neurovascularly intact. Skin pink, warm, & dry, no rash, skin atraumatic. Neurologic awake, alert and oriented x 3, AAOx3, moves all 4 extremities equally, motor intact, sensory intact, CN II-XII intact, normal cerebellar, normal vision, normal speech. Psychiatric normal mood/affect. Heme/Lymph/Immune no lymphadenopathy. Differential Diagnosis: Includes but is not limited to in a particular order a deltoid infection, dental infection, facial abscess, deep space neck infection Medical Decision Making: Plan for this patient and IV will be established, she will be hydrated normal saline 1 L, IV Dilaudid for pain control IV Zofran for nausea, she will have a CT scan of her face with IV contrast to rule out significant infection or abscess, IV clindamycin will be given. Given the amount of swelling this patient having an pain, she will need to be admitted to the hospital. She will need a oral maxillofacial consult. Re-evaluation: 0437: this time patient is resting comfortably. No progression of swelling. She inform at this time that she has her dog in her car and she has nobody they can pick her dog up. Plan for this patient she was going to be admitted for significant facial infection dental infection. However she is going to need to sign out against medical advice to go drop her dog off at her house and then she tells me she will return to the emergency room. She understands the risk of leaving prematurely including worsening infection, sepsis, . Source: Patient - Personal History LMP (Females 10-55): Hysterectomy Current Tetanus/Diphtheria Vaccine: Yes Current Tetanus Diphtheria and Acellular Pertussis (TDAP): Yes - Medical/Surgical History Hx Asthma: No Hx Chronic Respiratory Disease: No Hx Diabetes: No Hx Cardiac Disease: No Hx Renal Disease: No Hx Cirrhosis: No Hx Alcoholism: No Hx HIV/AIDS: No Hx Splenectomy or Spleen Trauma: No Other PMH: PSH: hysterectomy; appy; t&a;. PMH: chronic back pain; chronic kidney infection; Madelyn-Danlos Syndrome; osteoporosis, degnerative disk disease , Crohn's, fibromyalgia, HEROIN AND METH USE iv - Social History Smoking Status: Current every day smoker Constitutional: Initial Vital Signs Temperature (C) 37.6 C 06/02/16 01:50 Heart Rate 109 H 06/02/16 01:50 Respiratory Rate 16 06/02/16 01:50 Blood Pressure 135/75 H 06/02/16 01:50 O2 Sat (%) 97 06/02/16 01:50 O2 Delivery Mode Room Air Allergies/Adverse Reactions: metals Allergy (Uncoded 06/02/16 01:57) Home Medications: Medication Instructions Recorded Nortriptyline HCl [Pamelor 50 mg 50 mg PO BID 04/06/16 (*)] Ondansetron Odt [Zofran Odt 4 mg 4 mg PO Q4 PRN 04/06/16 (*)] Pregabalin [Lyrica 50mg (*)] 200 mg PO TID 04/06/16 Promethazine HCl [Phenergan 25mg 25 mg PO Q6 PRN 04/06/16 (*)] Tizanidine HCl 4 mg PO TID 04/06/16 clonIDINE [Catapres (*)] 0.1 mg PO BID 04/06/16 oxyCODONE IR [Oxycodone Ir (*)] 15 mg PO TID 04/06/16 hydrOXYzine HCL 06/02/16 Medical Decision Making - Data Points Laboratory Results: Laboratory Results 06/02/16 02:10 06/02/16 02:10 06/02/16 06/02/16 02:10 02:10 WBC 12.34 10^3/uL H 10^3/uL (3.80-9.50) RBC 5.38 10^6/uL H 10^6/uL (4.18-5.33) Hgb 14.6 g/dL g/dL (12.6-16.3) Hct 44.7 % % (38.0-47.0) MCV 83.1 fL fL (81.5-99.8) MCH 27.1 pg L pg (27.9-34.1) MCHC 32.7 g/dL g/dL (32.4-36.7) RDW 15.5 % H % (11.5-15.2) Plt Count 395 10^3/uL 10^3/uL (150-400) MPV 10.9 fL fL (8.7-11.7) Neut % (Auto) 63.8 % % (39.3-74.2) Lymph % (Auto) 27.0 % % (15.0-45.0) Antelope % (Auto) 7.1 % % (4.5-13.0) Eos % (Auto) 1.3 % % (0.6-7.6) Baso % (Auto) 0.6 % % (0.3-1.7) Nucleat RBC Rel Count 0.0 % % (0.0-0.2) Absolute Neuts (auto) 7.88 10^3/uL H 10^3/uL (1.70-6.50) Absolute Lymphs (auto) 3.33 10^3/uL H 10^3/uL (1.00-3.00) Absolute Monos (auto) 0.87 10^3/uL H 10^3/uL (0.30-0.80) Absolute Eos (auto) 0.16 10^3/uL 10^3/uL (0.03-0.40) Absolute Basos (auto) 0.07 10^3/uL 10^3/uL (0.02-0.10) Absolute Nucleated RBC 0.00 10^3/uL 10^3/uL (0-0.01) Immature Gran % 0.2 % % (0.0-1.1) Immature Gran # 0.03 10^3/uL 10^3/uL (0.00-0.10) ESR 17 MM/HR MM/HR (0-20) Sodium 137 mEq/L mEq/L (134-144) Potassium 5.0 mEq/L mEq/L (3.5-5.2) Chloride 100 mEq/L mEq/L (97-110) Carbon Dioxide 25 mEq/l mEq/l (22-31) Anion Gap 12 mEq/L mEq/L (8-16) BUN 9 mg/dL mg/dL (7-23) Creatinine 0.5 mg/dL L mg/dL (0.6-1.0) Estimated GFR > 60 Glucose 85 mg/dL mg/dL (70-100) Calcium 9.5 mg/dL mg/dL (8.5-10.4) C-Reactive Protein 22.5 mg/L H mg/L (<10.0) Medications Given: Discontinued Medications Dexamethasone (Decadron Injection) 10 mg IVP EDNOW ONE Stop: 06/02/16 02:16 Last Admin: 06/02/16 02:24 Dose: 10 mg Hydromorphone HCl (Dilaudid) 1 mg IVP EDNOW ONE Stop: 06/02/16 02:15 Last Admin: 06/02/16 02:25 Dose: 1 mg Sodium Chloride (Ns) 1,000 mls @ 0 mls/hr IV ONCE ONE PRN Reason: Wide Open Stop: 06/02/16 02:15 Last Admin: 06/02/16 02:25 Dose: 1,000 mls Clindamycin Phosphate/Dextrose (Cleocin 900 Mg (Premix)) 50 mls @ 100 mls/hr IV EDNOW ONE PRN Reason: Protocol Stop: 06/02/16 02:44 Last Admin: 06/02/16 02:40 Dose: 50 mls Ondansetron HCl (Zofran) 4 mg IVP EDNOW ONE Stop: 06/02/16 02:15 Last Admin: 06/02/16 02:25 Dose: 4 mg Departure - Departure Disposition: Against Medical Advice Clinical Impression: Dental infection Condition: Fair Instructions: Cellulitis (ED) Additional Instructions: 1. You for leaving against medical advice however I do highly recommend he return immediately to the emergency room as you need to be admitted to the hospital as you have a very significant facial infection. He understands by leaving this can cause worsening infection, sepsis, . Referrals: Patient,NotPresent [Unknown] - As per Instructions
[2016-06-02 02:22] LABS: % IMMATURE GRANULYOCYTES 0.2 % (0.0-1.1); ABSOLUTE IMMATURE GRANULOCYTES 0.03 10^3/uL (0.00-0.10); ADD DIFF? NO; ADD MORPH? NO; ADD SCAN? NO; ATYPICAL LYMPHOCYTE FLAG 10 (0-99); FRAGMENT RBC FLAG 0 (0-99); HEMATOCRIT 44.7 % (38.0-47.0); HEMOGLOBIN 14.6 g/dL (12.6-16.3); LEFT SHIFT FLG 0 (0-99); LIPEMIA HEMOLYSIS FLAG 80 (0-99); MEAN CELL HEMOGLOBIN 27.1 pg (27.9-34.1); MEAN CELL HEMOGLOBIN CONCENTR. 32.7 g/dL (32.4-36.7); MEAN CELL VOLUME 83.1 fL (81.5-99.8); MEAN PLATELET VOLUME 10.9 fL (8.7-11.7); PLATELET CLUMPS FLAG 10 (0-99); PLATELET COUNT 395 10^3/uL (150-400); RED BLOOD CELL COUNT 5.38 10^6/uL (4.18-5.33); RED CELL DISTRIBUTION WIDTH 15.5 % (11.5-15.2)
[2016-06-02 02:42] LABS: ANION GAP 12 mEq/L (8-16); C-REACTIVE PROTEIN 22.5 mg/L (<10.0); CALCIUM 9.5 mg/dL (8.5-10.4); CARBON DIOXIDE 25 mEq/l (22-31); CHLORIDE 100 mEq/L (97-110); CREATININE 0.5 mg/dL (0.6-1.0); GLOMERULAR FILTRATION RATE > 60; GLUCOSE 85 mg/dL (70-100); SODIUM 137 mEq/L (134-144)
[2016-06-02 02:44] LABS: SEDIMENTATION RATE 17 MM/HR (0-20)
[2016-06-02] MEDS ORDERED: IOPAMIDOL (ISOVUE-300) 100 ML BTL IV ONE (02:45)
[2016-06-02 04:10] VITALS: BP 137/85; PULSE 104; TEMP 99; O2SAT 94
== END 2016-06-02 04:48 | disposition left against medical advice (07) ==
DX: K04.7 Periapical abscess without sinus (principal); F17.200 Nicotine dependence, unspecified, uncomplicated
CPT/HCPCS: 70487; 96365; 96375; 99285; J1170; J2405; Q9967

== ENCOUNTER 2016-06-02 06:48 | Inpatient (IN) | payer OTHER ==
[2016-06-02] MEDS ORDERED: ONDANSETRON 4 MG/2 ML VIAL IVP PRN (07:20)
[2016-06-02] MEDS ORDERED: ACETAMINOPHEN 325 MG TAB PO PRN (07:20)
[2016-06-02] MEDS ORDERED: ONDANSETRON DISINTEGRATING 4 MG TAB PO PRN ×2 (07:20→12:03)
--- NOTE | 2016-06-02 07:28 | EDPHY ---
H & P Stated Complaint: returned for admission after leaving AMA this morning Time Seen by Provider: 06/02/16 07:01 - Personal History LMP (Females 10-55): Hysterectomy Current Tetanus/Diphtheria Vaccine: Yes Current Tetanus Diphtheria and Acellular Pertussis (TDAP): Yes - Medical/Surgical History Hx Asthma: No Hx Chronic Respiratory Disease: No Hx Diabetes: No Hx Cardiac Disease: No Hx Renal Disease: No Hx Cirrhosis: No Hx Alcoholism: No Hx HIV/AIDS: No Hx Splenectomy or Spleen Trauma: No Other PMH: PSH: hysterectomy; appy; t&a;. PMH: chronic back pain; chronic kidney infection; Madelyn-Danlos Syndrome; osteoporosis, degnerative disk disease , Crohn's, fibromyalgia, HEROIN AND METH USE iv - Social History Smoking Status: Current every day smoker Constitutional: Initial Vital Signs Temperature (C) 37.5 C 06/02/16 06:49 Heart Rate 117 H 06/02/16 06:49 Respiratory Rate 16 06/02/16 06:49 Blood Pressure 121/71 H 06/02/16 06:49 O2 Sat (%) 95 06/02/16 06:49 O2 Delivery Mode Room Air Allergies/Adverse Reactions: metals Allergy (Uncoded 06/02/16 01:57) Home Medications: Medication Instructions Recorded Nortriptyline HCl [Pamelor 50 mg 50 mg PO BID 04/06/16 (*)] Ondansetron Odt [Zofran Odt 4 mg 4 mg PO Q4 PRN 04/06/16 (*)] Pregabalin [Lyrica 50mg (*)] 200 mg PO TID 04/06/16 Promethazine HCl [Phenergan 25mg 25 mg PO Q6 PRN 04/06/16 (*)] Tizanidine HCl 4 mg PO TID 04/06/16 clonIDINE [Catapres (*)] 0.1 mg PO BID 04/06/16 oxyCODONE IR [Oxycodone Ir (*)] 15 mg PO TID 04/06/16 hydrOXYzine HCL 06/02/16 Medical Decision Making ED Course/Re-evaluation: CHIEF COMPLAINT: Facial swelling HISTORY OF PRESENT ILLNESS: The patient is a 41 y/o female returning to the ED for admission for significant facial cellulitis. She was assessed in the ED earlier this morning and a CT showed soft tissue swelling without abscess. She agreed to admission, but needed to find someone to care for her dog that was in her car first. She has a history of IV drug abuse and poor dentition. She first noticed some pain and swelling localized to the right side of her tongue 2 days ago that progressed to jaw swelling, which has significantly increased in the last 24 hours. She endorses associated chills and feeling like "I have strep throat." She denies difficulty breathing. REVIEW OF SYSTEMS: A 10 point review of systems was performed and is negative with the exception of the elements mentioned in the history of present illness. PHYSICAL EXAM: General Appearance: Alert, well hydrated, appropriate, and non-toxic appearing. Head: Atraumatic without scalp tenderness or obvious injury Eyes: Pupils equal, round, reactive to light and accommodation, EOMI, no trauma , no injection. Ears: Clear bilaterally, no perforation, normal landmarks Nose: Atraumatic, no rhinorrhea, clear. Throat/Mouth: There is no erythema or exudates, no lesions, normal tonsils, mucus membranes moist. Poor dentition, significant swelling along right mandible , uvula midline, normal posterior pharynx Neck: Supple, non-tender. Respiratory: No retractions, no distress, no wheezes, and no accessory muscle use. Lungs are clear to auscultation bilaterally. Normal speech without stridor. Cardiovascular: Regular rate and rhythm, no murmurs, rubs, or gallops. Good capillary refill all extremities. Gastrointestinal: Abdomen is soft, non-tender, non-distended, no masses, no rebound, no guarding, no peritoneal signs. Musculoskeletal: Normal active ROM of all extremities, atraumatic. Neurological: Alert, appropriate, and interactive. The patient has normal DTRs and non-focal cranial nerves, motor, sensory, and cerebellar exam. Skin: No rashes, good turgor, no nodules on palpation. PAST MEDICAL HISTORY: Fibromyalgia, degenerative disc disease, scoliosis, Madelyn -Danlos syndrome, Crohn's disease PAST SURGICAL HISTORY: Denies SOCIAL HISTORY: tobacco use, IV drug abuse Reviewed prior medical records including ED visit earlier this morning for the same complaint. DIFFERENTIAL DIAGNOSIS: The differential diagnosis for the patient's facial swelling included but was not limited to gingivitis, cellulitis, dental abscess , viral syndrome, meningitis, and sepsis. MEDICAL DECISION MAKING: This is a 41 y/o female with a history of poor dentition and IV drug abuse who returns to the ED for admission following diagnosis of facial infection without abscess. On exam, she has significant swelling around her right jawline without airway compromise. IV established and cultures drawn. She received IV clindamycin earlier and the hospitalist is aware of her pending admission. 0709: Spoke with Dr. Fonseca, hospitalist. She accepts admission. Departure - Departure Disposition: [facility] Inpatient Acute Clinical Impression: Dental infection, Right facial swelling Condition: Good Report Scribed for: Antoni Wagner Report Scribed by: Violetta Sylvester Date of Report: 06/02/16 Time of Report: 07:29
--- NOTE | 2016-06-02 07:30 | PDGENHP ---
History and Physical - Chief Complaint facial swelling - History of Present Illness Patient is 41/F with Madelyn Danlos Syndrome, chronic pain with chronic opioid dependence and IVDU who presents to the ED complaining of R jaw swelling. Patient reports first noticing some discomfort in her jaw/mouth on thursday evening. By the following morning her discomfort had increased and she also developed mild swelling in her R lower jaw. This became associated with subjective fevers/chills, pain with chewing and the swelling significantly increased over the course of the day, so she decided to come to the ED. She denies any associated shortness of breath or difficulty swallowing. On arrival to the ED, patient was afebrile, mildly tachycardic, but hemodynamically stable. Labs revealed mild leukocytosis and elevated CRP. CT of the face was obtained and revealed significant soft tissue edema without abscess formation. She was given IVF, clindamycin and was planned to be admitted. However, patient reported her dog was in her car at that time, so she AMA'd to leave him with a friend and then returned to the ED for admission this AM. She continues to use IV heroin daily, although reports trying to cut back. She was recently admitted one month ago for L foot cellulitis, which has healed without complication. History Information - Allergies/Home Medication List Allergies/Adverse Reactions: metals Allergy (Uncoded 06/02/16 01:57) Home Medications: Nortriptyline HCl [Pamelor 50 mg (*)] 50 mg PO BID 04/06/16 [Last Taken 08:00] Ondansetron Odt [Zofran Odt 4 mg (*)] 4 mg PO Q4 PRN 04/06/16 [Last Taken 14:00] Pregabalin [Lyrica 50mg (*)] 200 mg PO TID 04/06/16 [Last Taken 04/05/16 14:00] Promethazine HCl [Phenergan 25mg (*)] 25 mg PO Q6 PRN 04/06/16 [Last Taken 04/05 08:00] Tizanidine HCl 4 mg PO TID 04/06/16 [Last Taken 04/05/16 12:00] clonIDINE [Catapres (*)] 0.1 mg PO BID 04/06/16 [Last Taken 04/05/16 08:00] oxyCODONE IR [Oxycodone Ir (*)] 15 mg PO TID 04/06/16 [Last Taken 04/05/16 14:00 ] hydrOXYzine HCL 06/02/16 [Last Taken Unknown] I have personally reviewed and updated: family history, medical history, social history, surgical history - Past Medical History Additional medical history: Madelyn Danlos Syndrome. Chronic pain syndrome. chronic opioid dependence/abuse. degenerative disc disease. chronic migraine headache. ? crohn's disease, reportedly well controlled - Surgical History Additional surgical history: hysterectomy with BSO. appendectomy. b/l breast augmentation - Family History Additional family history: M: breast ca, HTN - Social History Smoking Status: Current every day smoker Alcohol Use: None Drug Use: Heroin Additional social history: Patient currently lives alone in [place]. Currently on disability, formerly worked in sales. Review of Systems ROS: 10pt was reviewed & negative except for what was stated in HPI & below Physical Exam Temp Pulse Resp BP Pulse Ox 37.5 C 117 H 16 121/71 H 95 06/02/16 06:49 06/02/16 06:49 06/02/16 06:49 06/02/16 06:49 06/02/16 06:49 Constitutional: no apparent distress, appears nourished, not in pain Eyes: PERRL, anicteric sclera, EOMI Ears, Nose, Mouth, Throat: moist mucous membranes, other (large R inf jaw payal extending to angle of mandible; poor dentition diffusely, but ashley in lower jaw; scattered cervical lymphadenopathy present on R) Cardiovascular: regular rate and rhythym, no murmur, rub, or gallop, pulses symmetric bilaterally, No JVD, No edema Peripheral Pulses: 2+: dorsalis-pedis (R), dorsalis-pedis (L) Respiratory: no respiratory distress, no rales or rhonchi, clear to auscultation Gastrointestinal: normoactive bowel sounds, soft, non-tender abdomen, no palpable masses, No tenderness, No guarding, No rebound, No distension Genitourinary: no bladder fullness, no bladder tenderness Skin: other (diffuse IV drug track de los santos on bilateral upper extremities) Musculoskeletal: full muscle strength, no muscle tenderness, normal joint ROM, no joint effusions Neurologic: AAOx3, sensation intact bilaterally, CN II-XII Intact, No weakness, No numbness, No facial droop Psychiatric: interacting appropriately, not anxious, not encephalopathic, thought process linear Lab Data & Imaging Review CBC: 12.34 > 14.6 / 44.7 < 395 BMP: 137 / 5 / 100 / 9 / 0.5 < 85 CRP: 22.5 Visualized and Interpreted imaging results: Yes Interpretation: Facial CT: soft tissue swelling without abscess formation in R jaw Assessment & Plan Assessment: Patient is a 41/F with chronic pain, chronic opioid dependence and IVDU and recent admission to [facility] for L foot MRSA cellulitis who presents to the ED complaining of R jaw swelling and pain. ED work up reveals facial cellulitis of inferior R jaw, likely due to poor dentition and dental infection. No evidence of abscess. Plan: # sepsis secondary to facial cellulitis Patient presents with tachycardia, leukocytosis and R jaw/dental infection infection, consistent with sepsis. No evidence of end organ damage on presentation. Patient cultured and given IV antibiotics in ED. CT facial does not show evidence of bony involvement and airway remains widely patent. - f/u blood cultures - cont Clindamycin 600 IV q6h - pain control with tylenol/toradol prn - IVF: NS @ 100 cc/hr # chronic pain, chronic opioid abuse, IVDU Patient acknowledges IVDU is a problem and reports she is actively trying to cut back and quit. Will try to avoid escalation of opioid pain meds during this admission. - once confirmed, can continue patient's outpatient pain med regimen # dispo: admit under observation status # full code
[2016-06-02] MEDS ORDERED: CLINDAMYCIN 600 MG/DEXTROSE/50 ML BAG IV ONE (07:41)
[2016-06-02] MEDS ORDERED: oxyCODONE IR 5 MG TAB ONE (07:41)
[2016-06-02] MEDS: oxyCODONE IR 5 MG TAB PO PRN ×4 (07:50→18:33)
[2016-06-02] MEDS: NS 1,000 ML IV SCH ×2 (07:50→16:19)
--- NOTE | 2016-06-02 08:54 | HOSPPROG ---
Hospitalist Progress Note Assessment/Plan: Patient is a 41/F with chronic pain, chronic opioid dependence and IVDU and recent admission to [facility] for L foot MRSA cellulitis who presents to the ED complaining of R jaw swelling and pain. ED work up reveals facial cellulitis of inferior R jaw, likely due to poor dentition and dental infection. Reviewed her care with both Dr Quintana and Dr Servin. Today is my first encounter with the patient / chart reviewed. * sepsis secondary to facial cellulitis - tachycardia and leukocytosis - f/u blood cultures - was on clindamycin and will be changed to Unasyn - pain control with tylenol/toradol prn *Right-sided facial swelling /early likely Otogenic - reviewed the CT scan report which shows a possible small abscess measuring 9 mm - oral surgeon to see ( Dr Quintana) * chronic pain, chronic opioid abuse, IVDU -patient used heroine prior to admission/ not using in her mouth -patient asking for her fentanyl patch (reviewed PDMP with pharmacist/ she had fentanyl patches, oxy and lyrica filled in March, but none since/ and then was placed on clonidine/ will attempt to reach her pain doctor (Dr Faustino Hopkins) * dispo: pending/ appreciate Dr Quintana and Dr Servin's involvement Subjective: Adeline is having some pain to the right jaw area. Objective: Vital Signs Temp Pulse Resp BP Pulse Ox 37.1 C 107 H 16 112/61 94 06/02/16 08:53 06/02/16 08:53 06/02/16 08:53 06/02/16 08:53 06/02/16 08:53 06/01/16 06/02/16 06/03/16 05:59 05:59 05:59 Intake Total 150 Balance 150 - Physical Exam Constitutional: uncomfortable Eyes: PERRL Ears, Nose, Mouth, Throat: hearing normal Cardiovascular: regular rate and rhythym Respiratory: no respiratory distress Gastrointestinal: normoactive bowel sounds Skin: warm, other (swelling along right jaw line area) Musculoskeletal: full muscle strength Neurologic: AAOx3 Psychiatric: interacting appropriately ICD10 Worksheet Patient Problems: Problems Problem Status Onset Dental infection Acute Right facial swelling Acute Cellulitis of foot without toes, left Acute Foot pain, left Acute MRSA (methicillin resistant Staphylococcus aureus) Acute 04/08/16 Tachycardia Acute
[2016-06-02] MEDS: KETOROLAC 30 MG/1 ML SDV IVP PRN ×2 (09:30→20:32)
[2016-06-02] MEDS: ENOXAPARIN 40 MG/0.4 ML SYR SC SCH (09:30)
[2016-06-02] MEDS ORDERED: hydrOXYzine HCL 25 MG TAB PO PRN (12:03)
[2016-06-02] MEDS: AMPICILLIN/SULBACTAM 3 GM in NS 100 ML IV SCH ×3 (12:24→23:43)
[2016-06-02] MEDS ORDERED: FLU VACC QS 2016-17(3-64YR)/PF 0.5 ML SYR (FLUARIX QUAD) IM ONE (12:52)
[2016-06-02] MEDS ORDERED: CLINDAMYCIN 600 MG/DEXTROSE 50 ML IV SCH (14:00)
--- NOTE | 2016-06-02 14:24 | GCON ---
[f rep st] CONSULTATION INFECTIOUS DISEASE CONSULTATION DATE OF CONSULTATION: 06/02/2016 REFERRING PHYSICIAN: Lamar Garzon NP REASON FOR CONSULTATION: Facial infection. HISTORY OF PRESENT ILLNESS: Patient is a 41-year-old female with a past medical history of Madelyn-D anlos syndrome, injection drug use, and a recent history of MRSA skin and soft tissue infection of t he left lower extremity whom I am asked to see in consultation for a right-sided facial infection. Patient was hospitalized at [facility] in March for an MRSA infection of the left lo wer extremity which required incision and drainage and has fully resolved. The patient notes over t he preceding weekend that she developed pain in the right jaw. This subsequently was associated wit h swelling and pain in her teeth. She did not have any sense of fever or chills. She did have diff iculty fully opening her mouth and eating. She also noted some pain in her tongue. She has not had any problems swallowing her saliva. She denies injecting into her mouth or face. Patient initiall y was seen in the emergency department overnight at which point a CT scan of face was performed whic h showed evidence of extensive soft tissue swelling in the right facial soft tissue with probable 9 mm periapical abscess present around one of her teeth; there was no abscess in the soft tissues. Parrish barry left AMA as she needed to fulfill some obligations and subsequently returned earlier this morn ing for admission. She does note that she has had some swollen and tender lymph nodes in the neck. No cough or shortness of breath. No nausea, vomiting, or diarrhea. She has been receiving clindam ycin since the time of her admission. Based on the above findings, I am now asked to assist in ongo ing management. PAST MEDICAL HISTORY: MRSA skin and soft tissue infection in March, Madelyn-Danlos syndrome, injec tion drug use, Crohn disease in remission, fibromyalgia. PAST SURGICAL HISTORY: Incision and drainage of left foot, appendectomy, hysterectomy for fibroids. CURRENT MEDICATIONS: Clindamycin 600 mg IV q.8 hours, Catapres 0.1 mg p.o. b.i.d., Lovenox 40 mg tellez bcu daily, hydroxyzine 25 mg p.o. daily as needed for anxiety, Toradol as needed, Pamelor 100 mg p.o . q.h.s., Oxy IR as needed for severe pain, Seroquel 100 mg p.o. q.h.s., Zanaflex 4 mg p.o. b.i.d. ALLERGIES: Metal allergies. SOCIAL HISTORY: Patient smokes approximately a half pack per day. No alcohol use. She currently u ses injection heroin daily. She notes she uses the needle share program. She had negative HIV and hepatitis testing in March. FAMILY HISTORY: Inflammatory bowel disease. REVIEW OF SYSTEMS: Outside that noted in HPI, remainder of 10 system review was unremarkable. PHYSICAL EXAMINATION: VITAL SIGNS: Temperature maximum 37.6, temperature current 36.8, heart rate 87, respiratory rate 16, blood pressure 93/58, oxygen saturation 93% on room air. GENERAL: Patient is a thin female in mild distress due to pain associated with jaw swelling. She appears nontoxic. HEENT: The right side of her face is significantly edematous with some induration but no palpable fluctuance. The area is tender without overlying erythema. The area of edema and tenderness extend s over the majority of the right side of the jaw and submandibular region. There is poor dentition throughout. There is no thrush. Patient has mild trismus. Patient is able to elevate her palate w ithout difficulty. Tongue appears normal. There is no nasal discharge. There is no facial or jimbo orbital erythema. NECK: Supple with shotty submandibular adenopathy bilaterally. There is no over lying erythema or edema over the anterior neck. CHEST: Clear to auscultation bilaterally without a dventitious sounds. Respiratory effort normal. CARDIOVASCULAR: Regular rate and rhythm without mu rmurs, gallops, rubs. ABDOMEN: Soft, nontender, nondistended. There is no palpable organomegaly. Bowel sounds are present. MUSCULOSKELETAL: There is no cyanosis, clubbing, or edema. There is a well-healed incision over the left lower extremity. SKIN: Multiple track de los santos from IV injections; no stigmata of endocarditis. Skin is warm, dry to touch. NEUROLOGIC: Patient is alert and intera cts appropriately with the examiner. Cranial nerves 2-12 are grossly intact although limited on the right side of the face. Muscle tone and bulk are normal. Sensation is grossly intact. LYMPHATICS : Submandibular shotty adenopathy as outlined above. No supraclavicular nodes noted. LABORATORY DATA: White blood cell count 12.3, hematocrit 44.7, platelets 395, neutrophils 64%, lymp hocytes 27%. Serum creatinine is 0.5, C-reactive protein 22.5. HIV antibody, hepatitis B surface a ntigen, and hepatitis C antibodies all negative in March. Blood cultures x2 sets are pending. CT scan of the face as outlined in history of present illness; this was reviewed and interpreted by me with Radiology today. IMPRESSION: Right facial infection of odontogenic etiology: Clinical and radiographic findings are consistent with facial infection due to odontogenic source. There appears to be a small periapical abscess around one of her teeth. There is no soft tissue abscess seen on CT scan. Most likely, th is will be due to odontogenic amcario. Patient does have prior history recently of methicillin-resist ant Staphylococcus aureus skin and soft tissue infection although suspect this will be of lower like lihood given findings consistent with odontogenic source. Therefore, will not target methicillin-re sistant Staphylococcus aureus currently. RECOMMENDATIONS: 1. Unasyn 3 g IV q.6 hours. 2. Discontinue clindamycin (can see resistance in some microaerophilic streptococcal species). 3. Oral surgery consultation as likely will require dental extraction for resolution of above findi ngs. 4. Follow blood cultures as available. Thank you for this consultation. We will continue to follow patient with you. /[id number]/MODL
--- NOTE | 2016-06-02 19:05 | GCON ---
[f rep st] ENFORCEMENT SAFETY OFFICER CONSULTATION DATE OF CONSULTATION: 06/02/2016 REASON FOR CONSULTATION: Facial edema HISTORY OF PRESENT ILLNESS: The patient is a 41-year-old female who reports right facial pain and swelling that began on 05/31/2016. She initially reported some fullness in her tongue and throat that then progressed and started involving right cheek swelling. Over the last day, she has endorsed vocal changes, difficulties opening her mouth, and some associated 4/10 dental pain with teeth in the lower right quadrant. OMFS has been consulted for a possible odontogenic source. PAST MEDICAL HISTORY: Madelyn-Danlos, Crohn's disease in remission, fibromyalgia , MRSA skin and soft tissue infection in March, chronic opioid dependence/ heroin abuse, degenerative disc disease, and chronic migraine headaches. MEDICATIONS: At home includes Pamelor, Zofran, Lyrica, Phenergan, tizanidine, clonidine, oxycodone and hydroxyzine. ALLERGIES: Metal allergy, resulting in urticaria and edema. SURGICAL HISTORY: Hysterectomy, appendectomy, and bilateral breast augmentation. FAMILY HISTORY: Mother with breast cancer and hypertension. SOCIAL HISTORY: Every day half a pack-a-day smoker. Denies alcohol use. Daily heroin use. Lives in [place] on disability. REVIEW OF SYSTEMS: A 10-point review of systems was reviewed and negative, except what was stated in the above HPI. PHYSICAL EXAM: VITAL SIGNS: Blood pressure 97/57, heart rate 76, respiratory rate 14, O2 saturation 99% on room air. BMI is 21.8. GENERAL: Resting in bed , mild diaphoresis of the facial region, no acute distress. HEENT: Right mid and lower facial edema, with mild erythema and warmth, non-indurated, measures approximately 6.5 x 6.5 cm in diameter, and involving the inferior mandibular border, which is palpable, but with some tenderness to touch. No cervical edema. Full neck mobility maintained. CHAYITO is 30 mm, can extend to 35 with mild discomfort. She is partially edentulous, fractured root tips # 2, 5, 10 through 15, 20, 21, 24 - 26. The floor of mouth is soft. Full tongue mobility maintained. Oropharynx visualized with no palatal or pharyngeal edema. There is vestibular fullness and tenderness of the right mandibular quadrant, no purulent drainage on palpation. CN 2-12 are grossly intact. LABORATORY DATA: White count approximately 12. IMAGING: CT scan of the maxillofacial region demonstrates radioucencies surrounding teeth numbers 26 through 28, and associated facial cellulitis. ASSESSMENT AND PLAN: Odontogenic-associated right buccal fascial space infection, currently stable, recommend extraction of teeth #26-28. Discussed findings with patient, she is aware that there are many other non-restorable teeth that will need to be treated as an outpatient. Risks/benefits/ complications discussed, all questions addressed. The patient is fully aware that smoking cessation is mandatory for optimal recovery and prevention of post- op complications. -will perform at bedside tomorrow afternoon ~ 15:00 under LA -OK to maintain PO intake -chlorhexidine rinses bid -abx per ID, appreciate rec's -will contact primary team in the am -analgesics prn /[id number]/MODL MTDD
[2016-06-02] MEDS ORDERED: fentaNYL 100 MCG PATCH TD SCH (20:00)
[2016-06-02] MEDS: QUEtiapine FUMARATE 100 MG TAB PO SCH (20:33)
[2016-06-02] MEDS: NORTRIPTYLINE HCL 50 MG CAP PO SCH (20:33)
[2016-06-02] MEDS: PREGABALIN 100 MG CAP PO SCH (20:34)
[2016-06-02] MEDS ORDERED: TIZANIDINE HCL 4 MG PO SCH (21:00)
[2016-06-03] MEDS: AMPICILLIN/SULBACTAM 3 GM in NS 100 ML IV SCH ×4 (05:17→23:41)
[2016-06-03] MEDS: CHLORHEXIDINE GLUCONATE 15 ML UDL PO SCH ×3 (05:18→21:05)
[2016-06-03 05:47] LABS: % IMMATURE GRANULYOCYTES 0.3 % (0.0-1.1); ABSOLUTE IMMATURE GRANULOCYTES 0.04 10^3/uL (0.00-0.10); ADD DIFF? NO; ADD MORPH? NO; ADD SCAN? NO; ATYPICAL LYMPHOCYTE FLAG 10 (0-99); FRAGMENT RBC FLAG 0 (0-99); HEMATOCRIT 35.4 % (38.0-47.0); HEMOGLOBIN 11.5 g/dL (12.6-16.3); LEFT SHIFT FLG 0 (0-99); LIPEMIA HEMOLYSIS FLAG 80 (0-99); MEAN CELL HEMOGLOBIN 27.4 pg (27.9-34.1); MEAN CELL HEMOGLOBIN CONCENTR. 32.5 g/dL (32.4-36.7); MEAN CELL VOLUME 84.5 fL (81.5-99.8); MEAN PLATELET VOLUME 11.2 fL (8.7-11.7); PLATELET CLUMPS FLAG 0 (0-99); PLATELET COUNT 238 10^3/uL (150-400); RED BLOOD CELL COUNT 4.19 10^6/uL (4.18-5.33); RED CELL DISTRIBUTION WIDTH 15.5 % (11.5-15.2)
[2016-06-03 06:19] LABS: ANION GAP 5 mEq/L (8-16); CALCIUM 8.7 mg/dL (8.5-10.4); CARBON DIOXIDE 23 mEq/l (22-31); CHLORIDE 111 mEq/L (97-110); CREATININE 0.5 mg/dL (0.6-1.0); GLOMERULAR FILTRATION RATE > 60; GLUCOSE 88 mg/dL (70-100); MAGNESIUM 2.2 mg/dL (1.6-2.3); POTASSIUM 4.3 mEq/L (3.5-5.2); SODIUM 139 mEq/L (134-144)
[2016-06-03] MEDS: ENOXAPARIN 40 MG/0.4 ML SYR SC SCH (08:57)
[2016-06-03] MEDS ORDERED: Herbals/Supplements -Info Only PO SCH (09:00)
[2016-06-03] MEDS: KETOROLAC 30 MG/1 ML SDV IVP PRN ×3 (09:09→23:41)
[2016-06-03] MEDS: oxyCODONE IR 5 MG TAB PO PRN ×4 (09:10→21:00)
[2016-06-03] MEDS: PREGABALIN 100 MG CAP PO SCH ×2 (10:19→21:02)
[2016-06-03] MEDS: NS 1,000 ML IV SCH (11:08)
[2016-06-03] MEDS ORDERED: ALPRAZolam 1 MG TAB PO ONE (12:21)
[2016-06-03] MEDS ORDERED: fentaNYL 100 MCG/2 ML INJ IVP ONE (12:23)
--- NOTE | 2016-06-03 12:26 | PCMIDPN ---
Assessment/Plan: Assessment/Plan: 1. Right Odontogenic infection secondary to periapical tooth abscess: - Blood cx ngtd -Wbc slightly improved. Creatinine stable -On unasyn. Continue for now. - Ct face reviewed. - For teeth extraction today. Meds Unasyn 3g q6- 06/02/16 Subjective: Afebrile. c/o right facial pain, tooth pain. denies cough or sputum production. mild sob. denies abd pain or diarrhea. Objective: Vital Signs Temp Pulse Resp BP Pulse Ox 36.3 C 73 20 147/88 H 95 06/03/16 08:00 06/03/16 08:00 06/03/16 08:00 06/03/16 08:57 06/03/16 08:00 Laboratory Results 06/03/16 05:30 06/03/16 05:20 06/02/16 06/03/16 06/04/16 05:59 05:59 05:59 Intake Total 2939 773 Balance 2939 773 - Physical Exam General Appearance: alert EENT: other (trismus. right facial swelling. no erythema noted. tender to palpate. ) Respiratory: lungs clear Cardiac/Chest: regular rate, rhythm Extremities: No swelling Abdomen: normal bowel sounds, non-tender, soft, No distended ICD10 Worksheet Patient Problems: Problems Problem Status Onset Dental infection Acute Right facial swelling Acute Cellulitis of foot without toes, left Acute Foot pain, left Acute MRSA (methicillin resistant Staphylococcus aureus) Acute 04/08/16 Tachycardia Acute
--- NOTE | 2016-06-03 12:52 | HOSPPROG ---
Hospitalist Progress Note Assessment/Plan: Patient is a 41/F with chronic pain, chronic opioid dependence and IVDU and recent admission to [facility] for L foot MRSA cellulitis who presents to the ED complaining of R jaw swelling and pain. ED work up reveals facial cellulitis of inferior R jaw, likely due to poor dentition and dental infection. * sepsis secondary to facial cellulitis - tachycardia and leukocytosis - blood cultures no growth at this time - Unasyn - pain control with tylenol/toradol prn *Right-sided facial swelling /Otogenic - reviewed the CT scan report which shows a possible small abscess measuring 9 mm - Dr Quintana to do teeth extraction today/ appreciate her care *nicotine dependenc - important for her to quit smoking due to the oral infection/Dr Quintana discussed this w her * chronic pain, chronic opioid abuse, IVDU -patient used heroine prior to admission/ not using in her mouth -reviewed PDMP with pharmacist/ she had fentanyl patches, oxy and lyrica filled in March, but none since/ and then was placed on clonidine/ pain doctor (Dr Faustino Hopkins) *stressors in her life -Adeline says her mom is in critical condition in an ICU in [place]/ plans to try and see her * dispo: She will require another midnight stay for IV antibiotics/ hopefully, can be dc home soon. Subjective: Adeline is not c/o pain when I evaluated her. Objective: Vital Signs Temp Pulse Resp BP Pulse Ox 36.3 C 73 20 147/88 H 95 06/03/16 08:00 06/03/16 08:00 06/03/16 08:00 06/03/16 08:57 06/03/16 08:00 Laboratory Results 06/03/16 05:30 06/03/16 05:20 06/02/16 06/03/16 06/04/16 05:59 05:59 05:59 Intake Total 2939 773 Balance 2939 773 - Physical Exam Constitutional: no apparent distress, uncomfortable, unkempt Eyes: PERRL Ears, Nose, Mouth, Throat: hearing normal, other (significant swelling around right jaw area and above it) Gastrointestinal: normoactive bowel sounds Skin: warm Musculoskeletal: full muscle strength Neurologic: AAOx3 Psychiatric: not anxious, depressed ICD10 Worksheet Patient Problems: Problems Problem Status Onset Dental infection Acute Right facial swelling Acute Cellulitis of foot without toes, left Acute Foot pain, left Acute MRSA (methicillin resistant Staphylococcus aureus) Acute 04/08/16 Tachycardia Acute
--- NOTE | 2016-06-03 18:03 | SOAPPROG ---
SOAP Progress Note Assessment/Plan: Assessment: 41 y F with right buccal space infection secondary to odontogenic infection #26-28 Plan: extraction of #26-28 under LA at bedside ~ 13:00: consent signed, 2 carpules of 2% lidocaine with 1:100K epi and 1 carpule of 0.5% marcaine with 1:200K epi given to R LEANNE, lingual, buccal, mental nerves, no complication, gingival cuff elevated, teeth luxated and delivered, purulent drainage obtained from vestibular space with extraction of #26 and #28, full thickness mucoperiosteal flap developed and extraction sites irrigated copiously with NS, gauze pressure for hemostasis. Post-op instructions provided verbally to nursing staff in room , written instructions placed at the bedside, pt cautioned NOT to sleep with gauze intraorally. will follow 06/03/16 17:58 Objective: Vital Signs Temp Pulse Resp BP Pulse Ox 36.6 C 76 18 139/84 H 96 06/03/16 15:29 06/03/16 15:29 06/03/16 15:29 06/03/16 15:29 06/03/16 15:29 06/02/16 06/03/16 06/04/16 05:59 05:59 05:59 Intake Total 120 Balance 120 ICD10 Worksheet Patient Problems: Problems Problem Status Onset Dental infection Acute Right facial swelling Acute Cellulitis of foot without toes, left Acute Foot pain, left Acute MRSA (methicillin resistant Staphylococcus aureus) Acute 04/08/16 Tachycardia Acute
[2016-06-03] MEDS: NORTRIPTYLINE HCL 50 MG CAP PO SCH (21:02)
[2016-06-03] MEDS: QUEtiapine FUMARATE 100 MG TAB PO SCH (21:02)
[2016-06-03 22:51] VITALS: RESP 16; TEMP 98.1
[2016-06-04] MEDS: KETOROLAC 30 MG/1 ML SDV IVP PRN ×2 (06:13→13:27)
[2016-06-04] MEDS: AMPICILLIN/SULBACTAM 3 GM in NS 100 ML IV SCH ×2 (06:13→12:24)
[2016-06-04 07:57] VITALS: BP 120/80; PULSE 88; O2SAT 96
--- NOTE | 2016-06-04 08:38 | SOAPPROG ---
SOAP Progress Note Assessment/Plan: Assessment: 41 y F with right buccal space infection secondary to odontogenic infection #26-28, now POD 1 of extraction #26-28, currently stable with clinical improvement this am. Plan: continue abx, transition to PO per ID d/c plan: will need to be discharged with rx for periogard mouthrinse, to continue for 2 weeks total (~1 bottle of 480 ml), to see Dr. Quintana in office ten days post-op, pt has contact information at bedside encourage smoking cessation can advance PO intake as tolerated analgesics prn, encourage transition to OTC meds will follow 06/04/16 08:34 Subjective: no reported overnight events, pt states that she feels better, overall pain has been manageable Objective: Vital Signs Temp Pulse Resp BP Pulse Ox 36.7 C 88 16 120/80 96 06/04/16 07:56 06/04/16 07:56 06/04/16 07:56 06/04/16 07:56 06/04/16 07:56 06/03/16 06/04/16 06/05/16 05:59 05:59 05:59 Intake Total 960 Output Total 1000 Balance -40 right midfacial edema has improved from previous exam, CN II-XII grossly intact , edema developing at right submandibular region yesterday has resolved, CHAYITO 35 mm w/o assistance, extraction sockets hemostatic, right mandibular vestibular fullness decreasing, FOM soft, non-tender to palpation intraorally ICD10 Worksheet Patient Problems: Problems Problem Status Onset Dental infection Acute Right facial swelling Acute Cellulitis of foot without toes, left Acute Foot pain, left Acute MRSA (methicillin resistant Staphylococcus aureus) Acute 04/08/16 Tachycardia Acute
[2016-06-04] MEDS: CHLORHEXIDINE GLUCONATE 15 ML UDL PO SCH (09:00)
[2016-06-04] MEDS: ENOXAPARIN 40 MG/0.4 ML SYR SC SCH (09:01)
[2016-06-04] MEDS: oxyCODONE IR 5 MG TAB PO PRN ×2 (09:01→13:26)
[2016-06-04] MEDS: PREGABALIN 100 MG CAP PO SCH (09:01)
--- NOTE | 2016-06-04 12:25 | PCMIDPN ---
Assessment/Plan: Right Facial cellulitis secondary to odontogenic source i.e. periapical tooth abscess s/p extraction #26-28 yesterday. Significant improvement by report today with much less swelling R face. Extraction sites without purulence --dc on 1 week Augmentin 875mg BID --f/u with dental; no ID f/u needed Discussed with Lamar Garzon and nursing, agrees with clinical assessment that significant clinical improvement Subjective: pain controlled ready to go home Objective: Vital Signs Temp Pulse Resp BP Pulse Ox 36.7 C 88 16 120/80 96 06/04/16 07:56 06/04/16 07:56 06/04/16 07:56 06/04/16 09:01 06/04/16 07:56 06/03/16 06/04/16 06/05/16 05:59 05:59 05:59 Intake Total 960 Output Total 1000 Balance -40 - Physical Exam General Appearance: alert, no apparent distress EENT: poor dentition (obvious extraction R lower jaw, no purulence), other ( Mild lower R facial swelling) Neck: supple, tender lateral (R) Cardiac/Chest: regular rate, rhythm Skin: No rash Neuro/Psych: alert, normal mood/affect, oriented x 3 ICD10 Worksheet Patient Problems: Problems Problem Status Onset Dental infection Acute Right facial swelling Acute Cellulitis of foot without toes, left Acute Foot pain, left Acute MRSA (methicillin resistant Staphylococcus aureus) Acute 04/08/16 Tachycardia Acute
--- NOTE | 2016-06-04 14:15 | HOSPPROG ---
Hospitalist Progress Note Assessment/Plan: Patient is a 41/F with chronic pain, chronic opioid dependence and IVDU and recent admission to [facility] for L foot MRSA cellulitis who presents to the ED complaining of R jaw swelling and pain. ED work up reveals facial cellulitis of inferior R jaw, likely due to poor dentition and dental infection. Reviewed her care today with Dr Godoy and Dr Quintana. * sepsis secondary to facial cellulitis - tachycardia and leukocytosis - blood cultures no growth at this time - Unasyn/dc home on Augmentin - pain control with tylenol/toradol prn *Right-sided facial swelling /Otogenic - reviewed the CT scan report which shows a possible small abscess measuring 9 mm - s/p teeth extraction -much improved *nicotine dependence - important for her to quit smoking due to the oral infection/Dr Quintana discussed this w her * chronic pain, chronic opioid abuse, IVDU -patient used heroine prior to admission/ not using in her mouth -reviewed PDMP with pharmacist/ she had fentanyl patches, oxy and lyrica filled in March, but none since/ and then was placed on clonidine/ pain doctor (Dr Faustino Hopkins) *stressors in her life -Adeline says her mom has significantly improved today * dispo: home, to get scripts filled prior to dc. Further f/u with Dr Quintana in 10 days. Subjective: Adeline is feeling much better today. Objective: Vital Signs Temp Pulse Resp BP Pulse Ox 36.7 C 88 16 120/80 96 06/04/16 07:56 06/04/16 07:56 06/04/16 07:56 06/04/16 09:01 06/04/16 07:56 06/03/16 06/04/16 06/05/16 05:59 05:59 05:59 Intake Total 960 Output Total 1000 Balance -40 - Physical Exam Constitutional: no apparent distress, appears nourished Eyes: PERRL Ears, Nose, Mouth, Throat: hearing normal Respiratory: no respiratory distress Skin: warm, other (right sided jaw area with much less swelling) Musculoskeletal: full muscle strength, no muscle tenderness Neurologic: AAOx3 Psychiatric: interacting appropriately, not anxious ICD10 Worksheet Patient Problems: Problems Problem Status Onset Dental infection Acute Right facial swelling Acute Cellulitis of foot without toes, left Acute Foot pain, left Acute MRSA (methicillin resistant Staphylococcus aureus) Acute 04/08/16 Tachycardia Acute
--- NOTE | 2016-06-04 14:51 | GDS ---
[f rep st] DISCHARGE SUMMARY DISCHARGE DIAGNOSES: 1. Sepsis secondary to facial cellulitis. 2. Right-sided facial swelling, odontogenic. 3. Nicotine dependence. 4. Chronic pain, chronic opioid use/IV drug use. CONSULTATIONS: During her stay: 1. Dr. Jameel Servin. 2. Dr. Quintana. HISTORY: Briefly, the patient is a 41-year-old female with a past medical history of Madelyn-Danlos syndrome, injection drug use, who came to the emergency room with right-sided facial swelling. The week preceding this, she developed pain in her right jaw. She had swelling and pain in her teeth but without any fever or chills. She did have difficulty opening her mouth. She had a CT scan of the face which showed evidence of extensive soft tissue swelling in the right facial soft tissue with a probable 9 mm periapical abscess present around one of her teeth. There was no abscess in the soft tissues. She was seen and evaluated by Dr. Quintana who did a tooth extraction on . She removed extraction of #26 through 28. The patient tolerated this very well. She will follow up with Dr. Quintana in the outpatient setting. She was treated with IV antibiotics during her stay. She will go home on oral Augmentin. HOSPITAL COURSE PER PROBLEM: 1. Sepsis secondary to facial cellulitis. The tachycardia and leukocytosis have resolved. The blood culture showed no growth. 2. Right-sided facial swelling/odontogenic. She had teeth extraction. The patient has done very well. 3. Nicotine dependence. We have discussed the importance of not smoking in the setting with this infection. 4. Chronic pain, chronic opioid use, IV drug use. She was using heroin prior to her admission. She has a pain doctor that she has seen, but upon discharge she says she is not sure if she has anyone. PENDING LABS AND TESTS: None. CONDITION AT DISCHARGE: Stable. Blood pressure is 120/80, heart rate is 88, respiratory rate is 16, O2 sats on room air 96%, temperature is 36.7 Celsius. MEDICATIONS AT DISCHARGE: Please see the EMR. DISCHARGE INSTRUCTIONS: 1. Rinse her mouth twice daily with Peridex. 2. Take the antibiotic as prescribed. 3. Stop smoking and stop IV drug use. 4. If she develops fever or chills, frequent diarrhea, to return to the ER. Greater than 30 minutes in discharging and coordinating care. /[id number]/MODL MTDD
== END 2016-06-04 15:14 | disposition home or self-care (01) | DRG 872 ==
LOC: INTOOBSV 07:10 → F3E 08:38 → OBSVTOIN 06-03 12:51
PROVIDERS: ADMIT Internal Medicine; ATTEND Hospitalist
PROC: 0CDXXZ1 Extraction of Lower Tooth, Multiple, External Approach (ICD-10-PCS; principal; 2016-06-03)
DX: A41.9 Sepsis, unspecified organism (principal); L03.211 Cellulitis of face; K04.7 Periapical abscess without sinus; F17.200 Nicotine dependence, unspecified, uncomplicated; Q79.6 Ehlers-Danlos syndromes; G89.29 Other chronic pain; F11.20 Opioid dependence, uncomplicated; G43.909 Migraine, unspecified, not intractable, without status migrainosus; K50.90 Crohn's disease, unspecified, without complications; Z86.14 Personal history of Methicillin resistant Staphylococcus aureus infection; Z23 Encounter for immunization
CPT/HCPCS: 96365; G0008; G0378; J0295; J1170; J1650; J1885; J2405; J3010; Q9967

== ENCOUNTER 2016-12-13 02:31 | Inpatient (IN) | payer OTHER ==
--- NOTE | 2016-12-13 02:54 | EDPHY ---
H & P Stated Complaint: fever, R FA abcess HPI/ROS: HPI CHIEF COMPLAINT: Nausea, vomiting, fever, right forearm abscess, IV drug use, recent incarceration HISTORY OF PRESENT ILLNESS: This patient very pleasant 41-year-old female she does have significant past medical history for IV drug use, Crohn's disease, additionally Madelyn-Danlos syndrome, additionally lupus, she presents emergency room she was incarcerated for the past 20 days she just got released tonight. She decided come to the emergency room as she has been having intermittent nausea vomiting. Additionally she has been using IV drugs however clean for 20 days she has been incarcerated. She has extensive track de los santos upper arms. She has a right forearm abscess that is been there for over 20 days. It is hard indurated. There is no fluctuance. There is no drainage. There is no redness. It is nontender. Her main complaint is she thinks she is dehydrated would like IV fluids. She has not had a fever here in the emergency room. She does not have a murmur on exam. Past Medical History: IV drug use, heroin addiction Past Surgical History: No recent surgery Social History: Incarcerated recently. Just released from [facility]. IV drug use. Family History: Noncontributory ROS REVIEW OF SYSTEMS: A comprehensive 10 point review of systems is otherwise negative aside from elements mentioned in the history of present illness. Exam Constitutional triage nursing summary reviewed, vital signs reviewed, awake/ alert. Eyes normal conjunctivae and sclera, EOMI, PERRLA. HENT normal inspection, atraumatic, moist mucus membranes, no epistaxis, neck supple/ no meningismus, no raccoon eyes. Respiratory clear to auscultation bilaterally, normal breath sounds, no respiratory distress, no wheezing. Cardiovascular rate normal, regular rhythm, slight murmur on exam patient be systolic , no edema, distal pulses normal. Gastrointestinal soft, non-tender, no rebound, no guarding, normal bowel sounds, no distension, no pulsatile mass. Genitourinary no CVA tenderness. Musculoskeletal no midline vertebral tenderness, full range of motion, no calf swelling, no tenderness of extremities, no meningismus, good pulses, neurovascularly intact. Skin pink, warm, & dry, no rash, skin atraumatic. Neurologic awake, alert and oriented x 3, AAOx3, moves all 4 extremities equally, motor intact, sensory intact, CN II-XII intact, normal cerebellar, normal vision, normal speech. Psychiatric normal mood/affect. Heme/Lymph/Immune no lymphadenopathy. Differential Diagnosis: Includes but is not limited to in a particular order, IV drug use, bacteremia, endocarditis, cardiac valve vegetation Medical Decision Making: Plan for this patient blood cultures, IV establishment , IV fluid bolus, IV Ancef. Check blood work. Most likely admit to the hospital. Rule out endocarditis and bacteremia. Re-evaluation: 0455AM: Given this patient's tachycardia, elevated white blood cell count, murmur on exam history of IV drug use with extensive track de los santos I am concerned about bacteremia endocarditis. I have ordered blood cultures. She has been given Ancef. I feel that the patient be admitted overnight for observation to rule out endocarditis. Possibly needs echocardiogram and blood cultures. She is not hypertensive here. Lactic acid is unremarkable. She agrees to stay. 0507: Spoke with the hospitalist service they agree to admit this patient. Reason for admission is high white count, IV drug use, appreciated murmur on exam, tachycardia. Rule out bacteremia and endocarditis. Source: Patient - Personal History LMP (Females 10-55): Hysterectomy Current Tetanus/Diphtheria Vaccine: Yes Current Tetanus Diphtheria and Acellular Pertussis (TDAP): Yes - Medical/Surgical History Hx Asthma: Yes Hx Chronic Respiratory Disease: No Hx Diabetes: No Hx Cardiac Disease: No Hx Renal Disease: No Hx Cirrhosis: No Hx Alcoholism: No Hx HIV/AIDS: No Hx Splenectomy or Spleen Trauma: No Other PMH: PSH: hysterectomy; appy; t&a;. PMH: chronic back pain; chronic kidney infection; Madelyn-Danlos Syndrome; osteoporosis, degnerative disk disease , Crohn's, fibromyalgia, HEROIN AND METH USE iv - Social History Smoking Status: Current every day smoker Constitutional: Initial Vital Signs Temperature (C) 36.6 C 12/13/16 02:41 Heart Rate 122 H 12/13/16 02:41 Respiratory Rate 18 12/13/16 02:41 Blood Pressure 116/95 H 12/13/16 02:41 O2 Sat (%) 94 12/13/16 02:41 O2 Delivery Mode Room Air Allergies/Adverse Reactions: metals Allergy (Uncoded 06/02/16 01:57) Home Medications: Medication Instructions Recorded Nortriptyline HCl [Pamelor 50 mg 100 mg PO HS 04/06/16 (*)] Ondansetron Odt [Zofran Odt 4 mg 4 mg PO Q6HRS PRN 04/06/16 (*)] Promethazine HCl [Phenergan 25mg 50 mg PO Q6 PRN 04/06/16 (*)] Tizanidine HCl 4 mg PO BID 04/06/16 clonIDINE [Catapres (*)] 0.1 mg PO HS 04/06/16 Herbals/Supplements -Info Only 1 ea PO DAILY 06/02/16 QUEtiapine FUMARATE [Seroquel 100 100 mg PO HS 06/02/16 mg (*)] Acetaminophen [Tylenol 325mg (*)] 650 mg PO Q4HRS PRN #0 tab 06/04/16 Pregabalin [Lyrica] 400 mg PO BID 12/13/16 oxyCODONE IR [Oxycodone Ir (*)] 15 - 30 mg PO TID PRN 12/13/16 Medical Decision Making - Data Points Laboratory Results: Laboratory Results 12/13/16 03:10 12/13/16 03:10 12/13/16 03:10 Hepatitis A IgM Ab Pending Hep Bs Antigen Pending Hep B Core IgM Ab Pending Hepatitis C Antibody Pending HIV 1&2 Antibody Pending Medications Given: Clonidine (Catapres) 0.1 mg PO HS [facility] Stop: 06/11/17 20:59 Last Admin: 12/13/16 20:35 Dose: 0.1 mg Enoxaparin Sodium (Lovenox) 40 mg SC DAILY [facility] Stop: 06/11/17 08:59 Last Admin: 12/13/16 08:16 Dose: 40 mg Sodium Chloride (Ns) 1,000 mls @ 125 mls/hr IV CONT [facility] Stop: 06/11/17 05:29 Last Admin: 12/13/16 06:41 Dose: 1,000 mls Vancomycin HCl 750 mg/ (Dextrose) 150 mls @ 150 mls/hr IV Q12@0500,1700 [facility] Stop: 01/12/17 16:59 Last Admin: 12/13/16 17:28 Dose: 150 mls Multivitamins (Tab-A-Gabe) 1 each PO DAILY [facility] Stop: 06/11/17 08:59 Last Admin: 12/13/16 08:16 Dose: 1 each Nicotine (Nicoderm Cq) 21 mg TD DAILY [facility] Stop: 06/11/17 11:14 Last Admin: 12/13/16 12:11 Dose: 21 mg Nortriptyline HCl (Pamelor) 100 mg PO HS [facility] Stop: 06/11/17 20:59 Last Admin: 12/13/16 20:36 Dose: 100 mg Oxycodone HCl (Oxycodone Ir) 15 - 30 mg PO TID PRN PRN Reason: Pain, Severe Stop: 12/23/16 11:06 Last Admin: 12/13/16 12:48 Dose: 30 mg Pregabalin (Lyrica) 400 mg PO BID [facility] Stop: 06/11/17 12:44 Last Admin: 12/13/16 20:36 Dose: 400 mg Promethazine HCl (Phenergan) 6.25 - 12.5 mg IVP Q6HRS PRN PRN Reason: Nausea/Vomiting, Use 2nd Stop: 06/11/17 05:25 Last Admin: 12/13/16 12:48 Dose: 12.5 mg Quetiapine Fumarate (Seroquel) 100 mg PO HS [facility] Stop: 06/11/17 20:59 Last Admin: 12/13/16 20:36 Dose: 100 mg Tizanidine HCl (Zanaflex) 4 mg PO BID [facility] Stop: 06/11/17 12:44 Last Admin: 12/13/16 20:36 Dose: 4 mg Discontinued Medications Sodium Chloride (Ns) 1,000 mls @ 0 mls/hr IV EDNOW ONE; Wide Open PRN Reason: Protocol Stop: 12/13/16 02:59 Last Admin: 12/13/16 03:22 Dose: 1,000 mls Cefazolin Sodium/Dextrose (Ancef 2 Gm (Premix)) 100 mls @ 200 mls/hr IV EDNOW ONE PRN Reason: Protocol Stop: 12/13/16 04:45 Last Admin: 12/13/16 04:47 Dose: 100 mls Vancomycin/Sodium Chloride (Vancomycin 1 Gm (Premix)) 250 mls @ 250 mls/hr IV EDNOW ONE PRN Reason: Protocol Stop: 12/13/16 06:04 Last Admin: 12/13/16 05:27 Dose: 250 mls Ondansetron HCl (Zofran) 4 mg IVP EDNOW ONE Stop: 12/13/16 02:59 Last Admin: 12/13/16 03:23 Dose: 4 mg Departure - Departure Disposition: [facility] Acute Clinical Impression: IVDU (intravenous drug user), Tachycardia Fever Qualifiers: Fever type: unspecified Qualified Code(s): R50.9 - Fever, unspecified Condition: Fair
[2016-12-13] MEDS ORDERED: NS 1,000 ML IV ONE (02:58)
[2016-12-13] MEDS ORDERED: ONDANSETRON 4 MG/2 ML VIAL IVP ONE (02:58)
[2016-12-13 03:19] LABS: % IMMATURE GRANULYOCYTES 0.3 % (0.0-1.1); ABSOLUTE IMMATURE GRANULOCYTES 0.06 10^3/uL (0.00-0.10); ADD DIFF? NO; ADD MORPH? NO; ADD SCAN? NO; ATYPICAL LYMPHOCYTE FLAG 0 (0-99); FRAGMENT RBC FLAG 0 (0-99); HEMATOCRIT 43.6 % (38.0-47.0); HEMOGLOBIN 14.5 g/dL (12.6-16.3); LEFT SHIFT FLG 0 (0-99); LIPEMIA HEMOLYSIS FLAG 80 (0-99); MEAN CELL HEMOGLOBIN 26.8 pg (27.9-34.1); MEAN CELL HEMOGLOBIN CONCENTR. 33.3 g/dL (32.4-36.7); MEAN CELL VOLUME 80.4 fL (81.5-99.8); MEAN PLATELET VOLUME 10.1 fL (8.7-11.7); PLATELET CLUMPS FLAG 10 (0-99); PLATELET COUNT 435 10^3/uL (150-400); RED BLOOD CELL COUNT 5.42 10^6/uL (4.18-5.33); RED CELL DISTRIBUTION WIDTH 14.4 % (11.5-15.2)
[2016-12-13 03:28] LABS: PROTIME(PATIENT) 13.1 SEC (12.0-15.0)
[2016-12-13 03:29] LABS: APTT 30.7 SEC (23.0-38.0)
[2016-12-13 03:33] LABS: ALANINE AMINOTRANSFERASE 29 IU/L (9-52); ALBUMIN 4.7 g/dL (3.5-5.0); ALKALINE PHOSPHATASE 82 IU/L (38-126); ANION GAP 17 mEq/L (8-16); ASPARTATE AMINOTRANSFERASE 16 IU/L (14-46); BILIRUBIN,TOTAL 0.5 mg/dL (0.1-1.4); BILIRUBIN-CONJUGATED 0.3 mg/dL (0.0-0.5); BILIRUBIN-UNCONJUGATED 0.2 mg/dL (0.0-1.1); CALCIUM 10.3 mg/dL (8.5-10.4); CARBON DIOXIDE 22 mEq/l (22-31); CHLORIDE 101 mEq/L (97-110); CREATININE 0.7 mg/dL (0.6-1.0); GLOMERULAR FILTRATION RATE > 60; GLUCOSE 99 mg/dL (70-100); POTASSIUM 4.8 mEq/L (3.5-5.2); SODIUM 140 mEq/L (134-144); TOTAL PROTEIN 8.2 g/dL (6.3-8.2)
[2016-12-13] MEDS ORDERED: ceFAZolin 2 GM/DEXTROSE 100 ML IV ONE (04:16)
[2016-12-13] MEDS ORDERED: VANCOMYCIN HCL/NORMAL SALINE 250 ML IV ONE (05:05)
[2016-12-13] MEDS ORDERED: ONDANSETRON DISINTEGRATING 4 MG TAB PO PRN ×2 (05:26→11:07)
[2016-12-13] MEDS ORDERED: diphenhydrAMINE 25 MG CAP PO PRN (05:26)
[2016-12-13] MEDS ORDERED: LORazepam 2 MG/ML INJ IVP PRN (05:26)
[2016-12-13] MEDS ORDERED: PROMETHAZINE HCL 25 MG/ML INJ IVP PRN (05:26)
[2016-12-13] MEDS ORDERED: ONDANSETRON 4 MG/2 ML VIAL IVP PRN (05:26)
[2016-12-13] MEDS ORDERED: ACETAMINOPHEN 325 MG TAB PO PRN (05:26)
[2016-12-13] MEDS ORDERED: NS 1,000 ML IV SCH (05:30)
[2016-12-13] MEDS: ENOXAPARIN 40 MG/0.4 ML SYR SC SCH (08:16)
[2016-12-13] MEDS: MULTIVITAMINS 1 EACH TAB PO SCH (08:16)
--- NOTE | 2016-12-13 09:30 | GHP ---
[f rep st] HISTORY AND PHYSICAL DATE OF ADMISSION: 12/13/2016 SOURCE: Patient provides history, appears fairly reliable. EMR reviewed and case discussed with ED provider. CHIEF COMPLAINT: Nausea, vomiting, and fever. HISTORY OF PRESENT ILLNESS: This is a pleasant 41-year-old female with past medical history significant for Crohn disease, lupus, fibromyalgia, chronic pain , previously on high-dose narcotics and now self-treatment with injectable heroin, who presents to the emergency department today with complaints of several days of nausea, vomiting, and fevers. Patient has been incarcerated for the past 20 days. She has had multiple abscesses on her arms for which she was given 2 different types of antibiotics, one of which she can only recall is Cipro, completing approximately a 12-day course of antibiotics. The patient states that she has continued to have fevers, chills, and sweats. She has also had persistent weight loss over a long period of time despite positive appetite and oral intake by her report. Patient denies any cough, has had persistent rhinorrhea. She does report more recently increased kidney pain bilaterally, and she states she has a history of recurrent pyelo. She also is complaining of abscesses on her arms that are not resolving. REVIEW OF SYSTEMS: GENERAL: No fevers, chills, and sweats. SKIN: Patient reports multiple abscesses on her arms at sites where she injects. She denies any open sores. EYES: Patient reports some increasingly blurry vision but no ocular pain. ENT: Patient does report some chronic rhinorrhea. No sore throat. CV: Patient does complain of substernal chest pain that is sharp, central, and pleuritic in nature with inspiration. occasional palpitations. RESPIRATORY: Patient does report some increased shortness of breath for 1 day. She denies any cough. GI: Positive for nausea, vomiting, and diarrhea. Patient denies any melena, hematochezia, or hematemesis. : Patient reports bilateral flank pain but no dysuria or hematuria. MUSCULOSKELETAL: Patient reports history of chronic back pain as well. Additionally, pain in hips, knees , but denies any acute joint swelling. She is also complaining of diffuse myalgias and cramping. NEUROLOGIC: Patient denies any headache. No numbness or tingling. No focal weakness. PSYCHIATRIC: Patient denies anxiety and depression, no SI or HI. Remainder review of systems negative except as above. ALLERGIES: Metal. No known drug allergies. HOME MEDICATIONS: Clonidine, tizanidine, Seroquel, Phenergan, Zofran, protriptyline, Tylenol, and herbal supplements. PAST MEDICAL HISTORY: Significant for chronic back pain with previous history of high-dose narcotic management. The patient has, in the past several years, discontinued all prescription medications and has turned to use of heroin. She reports that she was initially on 5 g per day and now currently down to 0.5 g per day injected. She also complains of history of Crohn disease, Madelyn-Danlos , lupus, history of MRSA cellulitis and abscess, osteoporosis, degenerative disk disease, and fibromyalgia next. PAST SURGICAL HISTORY: Significant for hysterectomy, bilateral tubal ligation, appendectomy, tonsillectomy and adenoidectomy. FAMILY HISTORY: Mother with hypertension. One maternal aunt with lupus, another with RA, and another with Madelyn-Danlos. SOCIAL HISTORY: Patient was just recently incarcerated and released. She is homeless. She does smoke approximately 1 pack per day since age of 15. She has history of IV drug use, preference of heroin. Denies any alcohol use. CODE STATUS: Full. PHYSICAL EXAM: VITAL SIGNS: On arrival to the ED, temperature 36.6, blood pressure 116/95, heart rate 122, respiratory rate 18, O2 sat 94% on room air. At time of interview, temperature 36.9, blood pressure 101/60, heart rate 89, respiratory rate 20, satting 94% on room air. GENERAL: No acute distress. Frail, cachectic-appearing female, is sitting in bed, awake. HEAD: Normocephalic, atraumatic. EYES: Extraocular muscles intact. Pupils equal, round, slightly decreased reactivity light bilaterally but symmetric. No scleral icterus or conjunctival injection. ENT: Mucous membranes appear moist. No pharyngeal erythema. Poor dentition. NECK: Supple. Trachea midline. CV: Regular rate and rhythm. There is a 2/6 systolic murmur appreciated. No rubs or gallops. RESPIRATORY: Lungs are clear to auscultation bilaterally. No wheezes, rales, or rhonchi. ABDOMEN: Positive bowel sounds. Soft, nontender to palpation. No rebound, guarding, or masses. : No Arias in place. No suprapubic tenderness to palpation. Patient does complain of bilateral CVA tenderness but does not withdraw from exam. MUSCULOSKELETAL: Patient with poor muscle tone, quite thin, but able to sit up independently and strength grossly normal in upper and lower extremities. NEUROLOGIC: Cranial nerves 2-12 intact, symmetric bilaterally. Patient is awake, alert, oriented x3. PSYCHIATRIC: Patient does appear a little bit anxious, but she is pleasant and cooperative. Thought process, content, and questions are appropriate. LABORATORY STUDIES: WBCs 20.3, H and H 14.5 and 43.6, MCV of 84.4, platelet count is 435, absolute neutrophils 13, no bands. PT 13.1, INR is 1.0, PTT is 30.7. Lactic acid 1.9. Sodium 140, potassium 4.8, chloride 101, CO2 22, BUN 23 , creatinine 0.7, GFR greater than 60, glucose 99. Calcium 10.3, total bilirubin 0.5, ALT 29, AST 69, alkaline phosphatase is 82, total protein 8.2. Albumin is 4.7. Lipase 184. Blood cultures x2 pending. ASSESSMENT AND PLAN: This is a pleasant 41-year-old female with history of intravenous drug use, presents with nausea, vomiting, and fevers. 1. Sepsis. Patient qualifies with significant leukocytosis and tachycardia upon admission, which has improved. Her lactate is okay. However, blood pressures have declined slightly despite appropriate IV fluid hydration. Blood cultures have been obtained. Source is likely related to patient's abscess on her arm versus concern for possible endocarditis with a new murmur. The patient without any Janeway lesions or Osler nodes. Echocardiogram has been ordered for this morning. Blood cultures were obtained and pending. Patient received 2 g of Ancef in the ED, and I requested vancomycin also be given. Patient does have a history of methicillin-resistant Staphylococcus aureus abscesses last year. 2. Right forearm abscess. Status post antibiotics as above. Patient with approximately a 3-4 cm abscess at site of injection. It does appear that there is an opening. Will try to use conservative management but may require surgical consultation to assist with incision and drainage. 3. History of intravenous drug use. Reviewed with the patient that will not be able to sustain opiate supply that patient is accustomed to. She does have some complaints of pain but advised of limitations. Patient was encouraged. Social Work consult for resources but patient at this point is not significantly interested as she reports that this is all she has been able to use to control her pain. Will check for human immunodeficiency virus and hepatitis. 4. Murmur. Echo as above. 5. Chronic medical issues including Crohn's, Madelyn-Danlos, and lupus reported. Supportive care at this time. 6. Fluid, electrolyte, nutrition. Continue with intravenous fluid hydration. Advance diet as tolerated. Electrolyte replacement p.r.n. if needed. Diet as tolerated. 7. Prophylaxis. Sequential compression devices and Lovenox. 8. Disposition. Patient admitted to inpatient status on PCU secondary to declining blood pressures and sepsis criteria. Anticipate greater than 2 midnights' stay, particularly to monitor blood cultures closely with increased risk for endocarditis. 9. Code status: Full. 10. Patient without any supportive family or friends. Social Work consultation also to assist with resources for Disposition as patient reports that she is homeless. /[id number]/MODL MTDD
[2016-12-13] MEDS: NICOTINE 21 MG/24 HR PATCH TD SCH (12:11)
[2016-12-13] MEDS: PREGABALIN 100 MG CAP PO SCH ×2 (12:48→20:36)
[2016-12-13] MEDS: oxyCODONE IR 15 MG TAB PO PRN (12:48)
--- NOTE | 2016-12-13 13:13 | ECHO ---
[email or web address] [address] [address] Main: [phone] Fax: Transthoracic Echocardiogram Name: NGUYEN BROWN MR#: [id number] Study Date: 12/13/2016 Study Time: 10:01 AM Date of : 1975 Age: 41 year(s) Height: 162.6 cm (64 in.) Weight: 51.26 kg (113 lb.) BSA: 1.53 m2 Gender: Female Examination: Echo Indication: Murmur/IVDU/Sirs, Breast implants Image Quality: Contrast: Requested by: Carrie Smith BP: 106 mmHg/67 mmHg Heart Rate: Rhythm: Indication: Murmur/IVDU/Sirs, Breast implants Procedure Staff Ordering Physician: MARCOS Race Board Attendant: Fouzia Wall Reading Physician: Brittney De Luna Conclusions: Normal size left ventricle. Normal global systolic LV function (EF 71 %). There is mild thickening of the mitral valve leaflets. Trivial to mild aortic valve regurgitation. No aortic valve stenosis is present. Mild tricuspid regurgitation is present. The pulmonary artery pressure is normal. There is no previous echocardiogram for comparison. Cannot definitively rule out valvular vegetation Measurements: Chambers Valvular Assessment AV/MV Valvular Assessment TV/PV Normal Normal Normal Name Value Range Name Value Range Name Value Range Ao Perlita (MM): 3.2 cm (2.2 cm-3.7 AV meanP mmHg ( - ) TR Vmax: 2.36 mm/s ( - ) cm) MV E Vmax: 0.74 cm/s ( - ) TR PGmax: 22 mmHg ( - ) IVSd (2D): 0.4 cm (0.6 cm-1.1 MV A Vmax: 0.57 cm/s ( - ) syst. PAP: 27 mmHg ( - ) cm) MV E/A: 1.30 ( - ) LVDd (2D): 4.2 cm (3.9 cm-5.3 cm) LVDs (2D): 2.7 cm (2.1 cm-4 cm) LVPWd (2D): 0.7 cm ( - ) LVEF (MOD4): 71 % (>=55 %) Continued Measurements: Chambers Valvular Assessment AV/MV Valvular Assessment TV/PV Name Value Name Value Name Value LA Area: 13.3 cm2 MV E/E' Septal: 6.70 CVP (est.): 5 LA Volume: 33 ml MV E/E' Lateral: 6.30 Patient: NGUYEN BROWN Study Date: 12/13/2016 Page 1 of 2 10:01 AM LA Volume Index: 21.6 ml/m2 Findings: Left Ventricle: Normal size left ventricle. No LV hypertrophy. Normal global systolic LV function (EF 71 %). Right Ventricle: Normal size right ventricle. Left Atrium: The left atrium is normal in size. Right Atrium: The right atrium is normal in size. Mitral Valve: There is mild thickening of the mitral valve leaflets. Cannot rule out vegetation There is no mtral valve regurgitation. Aortic Valve: There is mild thickening of the aortic cusps. Cannot rule out vegetation Trivial to mild aortic valve regurgitation. No aortic valve stenosis is present. Tricuspid Valve: The tricuspid valve is normal in appearance and function. Mild tricuspid regurgitation is present. The pulmonary artery pressure is normal. Pulmonic Valve: The pulmonic valve is normal in appearance and function. Great Vessels: The aorta is normal. Pericardium: No pericardial effusion. (No Signature Object) Patient: NGUYEN BROWN Study Date: 12/13/2016 Page 2 of 2 10:01 AM [id number]
--- NOTE | 2016-12-13 13:31 | GCON ---
[f rep st] CONSULTATION GENERAL SURGERY CONSULTATION DATE OF CONSULTATION: 12/13/2016 REFERRING PHYSICIAN: Harleen Serna MD REASON FOR EVALUATION: Possible forearm abscess. HISTORY OF PRESENT ILLNESS: 41-year-old female, recently incarcerated, with a significant history for IV drug abuse. She also has a history for Crohn disease , lupus, fibromyalgia, and chronic pain syndrome. She has been utilizing IV heroin to combat her pain concerns. She was admitted to the hospital with nausea, vomiting, fevers. She was found to have a right forearm possible abscess for which surgery has been requested for further drainage recommendations. The patient reports that this is an area that she has previously shot up. She says that the swelling has been there for many weeks. It is not painful. She denies any spontaneous drainage. PAST MEDICAL HISTORY: Crohn disease, lupus, fibromyalgia, chronic pain syndrome , IV drug abuse, Madelyn-Danlos syndrome, degenerative disk disease, osteoporosis. PAST SURGICAL HISTORY: Hysterectomy, tubal ligation, appendectomy, tonsillectomy with adenoidectomy. MEDICATIONS: Clonidine, tizanidine, Seroquel, Phenergan, Zofran, protriptyline. ALLERGIES: No known drug allergies. SOCIAL HISTORY: Notable for tobacco and IV drug abuse. PHYSICAL EXAMINATION: VITAL SIGNS: Temperature 36.9, blood pressure 100/60, pulse 89, respirations 15. GENERAL: The patient is alert, appropriate, comfortable. HEART: Regular. LUNGS: Clear. ABDOMEN: Soft. EXTREMITIES: Right upper extremity with a nontender 2 cm midforearm fluid collection with surrounding cord/phlebitis changes from prior IV injection. PROCEDURE: The forearm was anesthetized with 1% lidocaine. The fluctuant area was aspirated of old murky coagulum. This was sent for culture and sensitivity. The area was subsequently sharply incised. Old residual thrombus was expressed without purulence. IMPRESSION: 41-year-old female admitted with possible sepsis syndrome, right forearm phlebitis - possibly infected. The area of phlebitis was aspirated, incised, drained and cultured. Recommend continued local wound care. Instructions as detailed in her chart regarding further forearm care. I am doubtful that her forearm is the source of her sepsis syndrome. The findings were discussed with Dr. Serna. Please call if I can be of further assistance. /[id number]/MODL MTDD
[2016-12-13] MEDS ORDERED: BACITRACIN OINTMENT 1 PACKET TP ONE (16:07)
--- NOTE | 2016-12-13 16:13 | HOSPPROG ---
Hospitalist Progress Note Assessment/Plan: * Sepsis - BC pending -empiric IV Vanco pending cultures * RUE abscess -d/w Dr. Benton - recommend drainage * IVDA -HIV and hepatitis panel pending * Chronic pain with continuous narcotic dependency * Crohn's disease * SLE * Madelyn Danlos * h/o MRSA Subjective: c/o RUE abscess needing drainage Objective: Vital Signs Temp Pulse Resp BP Pulse Ox 36.8 C 105 H 23 H 102/63 97 12/13/16 15:38 12/13/16 15:38 12/13/16 15:38 12/13/16 15:38 12/13/16 15:38 Microbiology 12/13/16 12:00 Gram Stain - Final Arm - Swab 12/12/16 12/13/16 12/14/16 05:59 05:59 05:59 Intake Total 1000 1500 Balance 1000 1500 PT 13.1 SEC (12.0-15.0) 12/13/16 03:10 INR 1.00 (0.83-1.16) 12/13/16 03:10 ECHO - cannot definitely rule of veg Laboratory Tests 12/13/16 12/13/16 03:10 03:10 WBC 20.35 H MCH 26.8 L Plt Count 435 H VBG Lactic Acid 1.9 - Physical Exam Constitutional: no apparent distress, appears nourished, not in pain Cardiovascular: regular rate and rhythym, no murmur, rub, or gallop Respiratory: no respiratory distress, no rales or rhonchi, clear to auscultation Gastrointestinal: normoactive bowel sounds, soft, non-tender abdomen, no palpable masses Skin: no rashes or abrasions, no fluctuance, no induration Neurologic: AAOx3, sensation intact bilaterally Psychiatric: interacting appropriately, not anxious, not encephalopathic, thought process linear ICD10 Worksheet Patient Problems: Problems Problem Status Onset Fever Acute IVDU (intravenous drug user) Acute Tachycardia Acute Cellulitis of foot without toes, left Acute Dental infection Acute Foot pain, left Acute MRSA (methicillin resistant Staphylococcus aureus) Acute 04/08/16 Right facial swelling Acute
[2016-12-13] MEDS ORDERED: VANCOMYCIN HCL/NORMAL SALINE 250 ML IV SCH (17:00)
[2016-12-13] MEDS: VANCOMYCIN 750 MG in D5W 150 ML IV SCH (17:28)
[2016-12-13] MEDS: QUEtiapine FUMARATE 100 MG TAB PO SCH (20:36)
[2016-12-13] MEDS: NORTRIPTYLINE HCL 50 MG CAP PO SCH (20:36)
[2016-12-13] MEDS ORDERED: PREGABALIN 400 MG PO SCH (21:00)
[2016-12-13] MEDS ORDERED: TIZANIDINE HCL 4 MG PO SCH (21:00)
[2016-12-14] MEDS: VANCOMYCIN 750 MG in D5W 150 ML IV SCH ×2 (04:12→16:41)
[2016-12-14 04:42] LABS: % IMMATURE GRANULYOCYTES 0.4 % (0.0-1.1); ABSOLUTE IMMATURE GRANULOCYTES 0.03 10^3/uL (0.00-0.10); ADD DIFF? NO; ADD MORPH? NO; ADD SCAN? NO; ATYPICAL LYMPHOCYTE FLAG 20 (0-99); FRAGMENT RBC FLAG 0 (0-99); HEMATOCRIT 38.1 % (38.0-47.0); HEMOGLOBIN 12.2 g/dL (12.6-16.3); LEFT SHIFT FLG 0 (0-99); LIPEMIA HEMOLYSIS FLAG 80 (0-99); MEAN CELL HEMOGLOBIN 26.9 pg (27.9-34.1); MEAN CELL VOLUME 84.1 fL (81.5-99.8); MEAN PLATELET VOLUME 10.5 fL (8.7-11.7); PLATELET CLUMPS FLAG 0 (0-99); PLATELET COUNT 249 10^3/uL (150-400); RED BLOOD CELL COUNT 4.53 10^6/uL (4.18-5.33); RED CELL DISTRIBUTION WIDTH 14.8 % (11.5-15.2)
[2016-12-14 05:12] LABS: ANION GAP 10 mEq/L (8-16); CALCIUM 8.5 mg/dL (8.5-10.4); CARBON DIOXIDE 22 mEq/l (22-31); CHLORIDE 109 mEq/L (97-110); CREATININE 0.6 mg/dL (0.6-1.0); GLOMERULAR FILTRATION RATE > 60; GLUCOSE 91 mg/dL (70-100); POTASSIUM 4.4 mEq/L (3.5-5.2); SODIUM 141 mEq/L (134-144)
[2016-12-14] MEDS: NICOTINE 21 MG/24 HR PATCH TD SCH (08:07)
[2016-12-14] MEDS: MULTIVITAMINS 1 EACH TAB PO SCH (08:07)
[2016-12-14] MEDS: PREGABALIN 100 MG CAP PO SCH ×2 (08:07→21:43)
[2016-12-14] MEDS: ENOXAPARIN 40 MG/0.4 ML SYR SC SCH (08:07)
--- NOTE | 2016-12-14 15:04 | HOSPPROG ---
Hospitalist Progress Note Assessment/Plan: * Sepsis - BC pending -empiric IV Vanco pending cultures * RUE abscess - MRSA -s/p I&D - wound care * IVDA -HIV and hepatitis panel pending * Chronic pain with continuous narcotic dependency * Crohn's disease * SLE * Madelyn Danlos * h/o MRSA * Left flank pain -check UA and renal US Subjective: Still with left flank pain Objective: Vital Signs Temp Pulse Resp BP Pulse Ox 36.4 C 78 18 115/78 95 12/14/16 11:19 12/14/16 11:19 12/14/16 11:19 12/14/16 11:19 12/14/16 11:19 Microbiology 12/13/16 12:00 Gram Stain - Final Arm - Swab Laboratory Results 12/14/16 03:43 12/14/16 03:43 12/13/16 12/14/16 12/15/16 05:59 05:59 05:59 Intake Total 1000 5129 Balance 1000 5129 PT 13.1 SEC (12.0-15.0) 12/13/16 03:10 INR 1.00 (0.83-1.16) 12/13/16 03:10 - Physical Exam Constitutional: no apparent distress, appears nourished, not in pain Cardiovascular: regular rate and rhythym, no murmur, rub, or gallop Respiratory: no respiratory distress, no rales or rhonchi, clear to auscultation Gastrointestinal: normoactive bowel sounds, soft, non-tender abdomen, no palpable masses Skin: no rashes or abrasions, no fluctuance, no induration Neurologic: AAOx3, sensation intact bilaterally Psychiatric: interacting appropriately, not anxious, not encephalopathic, thought process linear ICD10 Worksheet Patient Problems: Problems Problem Status Onset Fever Acute IVDU (intravenous drug user) Acute Tachycardia Acute Cellulitis of foot without toes, left Acute Dental infection Acute Foot pain, left Acute MRSA (methicillin resistant Staphylococcus aureus) Acute 04/08/16 Right facial swelling Acute
--- NOTE | 2016-12-14 15:06 | ASMTCMCOM ---
CM Note CM Note Notes: 12/14/2016 Case Management Note: Met w/patient. Patient [facility] "I came right here from the correction when they let me go". Pt reports correction sentence of 20 days. Reports on night of arrest pt was w/friend who the police gave all pt belongings to including credit cards and phone. Pt unable to contact friend and unable to provide contact information of friend to case management. Prior to arrest pt had leased apartment in [place]. Pt reports that she is currently homeless d/t missed rent payment while in correction. Pt receives SSDI monthly, approximately $850. Patient is planning to change SSDI payments to prepayment card from auto deposit into bank account d/t friend "using my debit cards". Pt has had no contact w/friend since night of arrest. Pt reports no contact with children. 20 y.o is living in [place] and 18 y.o. is living in [place]. Pt states both parents and no longer in contact with siblings Discussed d/c poc from May 2016 admission at [facility]. Pt states that treatment centers felt she was to medically complex and would not accept for treatment. Pt reports finding one medical treatment center for detox in [facility] but did not attend d/t responsibilities for youngest child. Pt states that her preferred d/c is to an inpt detox facility. Pt states she has been "clean for 21 days" and is motivated to participate in inpatient recovery programs. Case Management to research possible placements on Thursday. Case Management to follow. Date Signed: 12/14/2016 03:05 PM Electronically Signed By:Yoselyn Liu RN
[2016-12-14] MEDS: oxyCODONE IR 15 MG TAB PO PRN (16:41)
[2016-12-14] MEDS: PROMETHAZINE HCL 25 MG TAB PO PRN (16:41)
[2016-12-14 19:33] LABS: COLOR PALE YELLOW; LEUKOCYTE ESTERASE,URINE NEGATIVE (NEGATIVE); NITRITE,URINE NEGATIVE (NEGATIVE)
[2016-12-14] MEDS: NORTRIPTYLINE HCL 50 MG CAP PO SCH (21:43)
[2016-12-14] MEDS: QUEtiapine FUMARATE 100 MG TAB PO SCH (21:43)
[2016-12-15] MEDS: VANCOMYCIN 750 MG in D5W 150 ML IV SCH (06:00)
--- NOTE | 2016-12-15 09:41 | ASMTCMCOM ---
CM Note CM Note Notes: 12/15/2016 Case Management Note: Met w/pt. Pt d/c today. Case Management faxed referrals o Thursday to the following at pt request for inpatient substance abuse treatment: Kevin [facility]s [phone] [facility] [phone] [facility] [phone] [facility] [phone] [facility] [phone] CeDAR: out of pocket costs $30,000 All replied that Medicare insurance is obstacle to inpatient treatment options for patient. Several reported pt would not meet inpatient admission criteria due to recent senior living stay w/limited access to illicit drugs. Provided d/c resources to patient for [facility], [facility], [facility], [place] [facility], [facility], [facility], Dr. Barajas and Dr. Hopkins, In addition provided all of the above phone numbers and names of facilities. Provided bus pass. Case Management d/c poc: To longterm w/access to community resources. Date Signed: 12/15/2016 09:40 AM Electronically Signed By:Yoselyn Liu RN
[2016-12-15] MEDS: NICOTINE 21 MG/24 HR PATCH TD SCH (09:49)
[2016-12-15] MEDS: SULFAMETHOX/TMP 800/160 MG 1 TAB PO SCH ×2 (09:51→20:42)
[2016-12-15] MEDS: ENOXAPARIN 40 MG/0.4 ML SYR SC SCH (09:51)
[2016-12-15] MEDS: MULTIVITAMINS 1 EACH TAB PO SCH (09:52)
[2016-12-15] MEDS: PREGABALIN 100 MG CAP PO SCH ×2 (09:52→20:42)
[2016-12-15] MEDS ORDERED: FLU VACC QS 2017-18 (3YR+)/PF 0.5 ML SYR (FLUARIX QUAD) IM ONE (09:59)
[2016-12-15] MEDS ORDERED: PNEUMOCOCCAL 0.5ML VACCINE VIAL IM ONE (09:59)
[2016-12-15] MEDS ORDERED: LEVONORGESTREL TD SCH (16:15)
[2016-12-15] MEDS ORDERED: ESTRADIOL 0.05 MG PATCH TD SCH (16:15)
[2016-12-15] MEDS ORDERED: ESTRADIOL TD SCH (16:15)
--- NOTE | 2016-12-15 16:32 | HOSPPROG ---
Hospitalist Progress Note Assessment/Plan: * RUE abscess - MRSA -s/p I&D - wound care -change to PO Bactrim * Sepsis - BC negative * IVDA -HIV and hepatitis panel negative * Chronic pain with continuous narcotic dependency * Crohn's disease * SLE * Madelyn Danlos * Left flank pain -UA and renal US negative Patient is stable for discharge today. She claims she cannot discharge as her body is unable to absorb oral antibiotics and she needs ongoing IV abx. I spoke with Dr. Servin of infectious disease, and he states there is no described phenomenon of oral antibiotics being unable to be absorbed. Bactrim is easily absorbed by the body. Patient has protested her discharge through Medicare and therefore discharge has been cancelled. Per social work, there may be some secondary gain as she does not get her next social security check until Dec 23. Subjective: Feels "terrible" Objective: Vital Signs Temp Pulse Resp BP Pulse Ox 36.6 C 103 H 16 112/74 95 12/15/16 12:00 12/15/16 12:00 12/15/16 12:00 12/15/16 12:00 12/15/16 12:00 Microbiology 12/13/16 12:00 Gram Stain - Final Arm - Swab Wound Culture - Final MRSA Laboratory Results 12/14/16 03:43 12/14/16 03:43 12/14/16 12/15/16 12/16/16 05:59 05:59 05:59 Intake Total 5129 360 Output Total 500 Balance 5129 -140 PT 13.1 SEC (12.0-15.0) 12/13/16 03:10 INR 1.00 (0.83-1.16) 12/13/16 03:10 - Physical Exam Constitutional: no apparent distress, appears nourished, not in pain Ears, Nose, Mouth, Throat: poor dentition Respiratory: no respiratory distress Skin: warm, normal color, No mottled, No rash Neurologic: AAOx3 Psychiatric: interacting appropriately, not anxious, thought process linear, No flat affect, No agitated ICD10 Worksheet Patient Problems: Problems Problem Status Onset Fever Acute IVDU (intravenous drug user) Acute Tachycardia Acute Cellulitis of foot without toes, left Acute Dental infection Acute Foot pain, left Acute MRSA (methicillin resistant Staphylococcus aureus) Acute 04/08/16 Right facial swelling Acute
[2016-12-15] MEDS ORDERED: VANCOMYCIN HCL/NORMAL SALINE 250 ML IV SCH (17:00)
[2016-12-15] MEDS: NORTRIPTYLINE HCL 50 MG CAP PO SCH (20:42)
[2016-12-15] MEDS: QUEtiapine FUMARATE 100 MG TAB PO SCH (20:43)
[2016-12-15] MEDS: oxyCODONE IR 15 MG TAB PO PRN (20:46)
[2016-12-16] MEDS ORDERED: MICAFUNGIN NA 100 MG in NS 100 ML IV ONE (01:00)
[2016-12-16] MEDS ORDERED: FLUCONAZOLE/NaCl 200 ML IV ONE (01:00)
[2016-12-16] MEDS: ENOXAPARIN 40 MG/0.4 ML SYR SC SCH (07:42)
[2016-12-16] MEDS: SULFAMETHOX/TMP 800/160 MG 1 TAB PO SCH ×2 (07:42→20:42)
[2016-12-16] MEDS: PREGABALIN 100 MG CAP PO SCH ×2 (07:42→20:42)
[2016-12-16] MEDS: NICOTINE 21 MG/24 HR PATCH TD SCH (07:42)
[2016-12-16] MEDS: MULTIVITAMINS 1 EACH TAB PO SCH (07:43)
--- NOTE | 2016-12-16 14:37 | ASMTCMCOM ---
CM Note CM Note Notes: 12/16/2016 Case Management Note: Case Management arranged for Peyton Cabello from [facility] to meet w/patient on 12/15/2016. Peyton can be reached at [phone]. Peyton found placement for pt at inpatient substance abuse treatment centers in [place] and [place]. Pt must transport self. Pt felt this was too complicated. Peyton left info for pt to contact [facility] . Once pt completes assessment intake interview, [facility] will take pt for inpatient substance abuse treatment. Case Management offerred to stay in room for any questions while pt completed phone call, pt refused "stating I'm not awake enough yet". Case Management willing to pay for taxi to facility at d/c from [facility], will need to confirm pt actually completed intake assessment and that pt is accepted for placement. Peyton provided the contact info for a member from her organization to support the patient at d/c with multiple outpatient treatment opportunities. Case management provided info for the [facility] . Case Management provided info for the [employer] [address] [place] [address] and the application. They are willing to take the pt free of charge for a 6 month intensive program once pt completes the intake application. Case Management provided info for [facility] locations for outpt drug treatment programs in [place]. At this point it is up to the pt to determine her d/c poc. If she chooses to not fill out the applications or complete the intake assessments the Case Management d/c poc remains: [facility] w/access to community resources. If pt chooses the [facility], IV antifungals will not be an option at d/c. Case Management to follow. 12/15/2016 Case Management Note: Met w/pt. Pt d/c today. Case Management faxed referrals o Thursday to the following at pt request for inpatient substance abuse treatment: Kevin [facility] [phone] [facility] in [place] [phone] [facility] [phone] [facility] [phone] [facility] [phone] CeDAR: out of pocket costs $30,000 All replied that Medicare insurance is obstacle to inpatient treatment options for patient. Several reported pt would not meet inpatient admission criteria due to recent half-way stay w/limited access to illicit drugs. Provided d/c resources to patient for [facility], [facility], [facility], [facility] [facility], [facility], [facility], Dr. Barajas and Dr. Hopkins, In addition provided all of the above phone numbers and names of facilities. Provided bus pass. Case Management d/c poc: To nursing home w/access to community resources. Date Signed: 12/16/2016 02:37 PM Electronically Signed By:Yoselyn Liu RN
--- NOTE | 2016-12-16 15:39 | HOSPPROG ---
Hospitalist Progress Note Assessment/Plan: * Dalila sepsis -d/w Dr. Stone - ID to consult -IV micafungin -ADAN ordered * RUE abscess - MRSA -s/p I&D - wound care -PO Bactrim * IVDA -HIV and hepatitis panel negative * Chronic pain with continuous narcotic dependency * Crohn's disease * SLE * Madelyn Danlos * Left flank pain -UA and renal US negative Subjective: Hopeful that treatment of yeast will help her feel better Objective: Vital Signs Temp Pulse Resp BP Pulse Ox 36.8 C 108 H 16 100/75 97 12/16/16 15:21 12/16/16 15:21 12/16/16 15:21 12/16/16 15:21 12/16/16 15:21 Microbiology 12/13/16 12:00 Gram Stain - Final Arm - Swab Wound Culture - Final MRSA Laboratory Results 12/14/16 03:43 12/14/16 03:43 12/15/16 12/16/16 12/17/16 05:59 05:59 05:59 Intake Total 360 1000 Output Total 500 1000 Balance -140 1000 -1000 PT 13.1 SEC (12.0-15.0) 12/13/16 03:10 INR 1.00 (0.83-1.16) 12/13/16 03:10 - Physical Exam Constitutional: no apparent distress, appears nourished, not in pain Cardiovascular: regular rate and rhythym, no murmur, rub, or gallop Respiratory: no respiratory distress, no rales or rhonchi, clear to auscultation Gastrointestinal: normoactive bowel sounds, soft, non-tender abdomen, no palpable masses Skin: no rashes or abrasions, no fluctuance, no induration Neurologic: AAOx3, sensation intact bilaterally Psychiatric: interacting appropriately, not anxious, not encephalopathic, thought process linear ICD10 Worksheet Patient Problems: Problems Problem Status Onset Fever Acute IVDU (intravenous drug user) Acute Methicillin resistant Staphylococcus aureus infection Acute ~12/13/16 Tachycardia Acute Cellulitis of foot without toes, left Acute Dental infection Acute Foot pain, left Acute MRSA (methicillin resistant Staphylococcus aureus) Acute 04/08/16 Right facial swelling Acute
[2016-12-16] MEDS: PROMETHAZINE HCL 25 MG TAB PO PRN (18:19)
[2016-12-16] MEDS: oxyCODONE IR 15 MG TAB PO PRN (18:20)
[2016-12-16] MEDS: NORTRIPTYLINE HCL 50 MG CAP PO SCH (20:42)
[2016-12-16] MEDS: QUEtiapine FUMARATE 100 MG TAB PO SCH (20:42)
--- NOTE | 2016-12-16 20:50 | GCON ---
[f rep st] CONSULTATION INFECTIOUS DISEASE CONSULTATION DATE OF CONSULTATION: 12/16/2016 REFERRING PHYSICIAN: Harleen Serna MD REASON FOR CONSULTATION: Fungemia, feeling poorly. HISTORY OF PRESENT ILLNESS: This is a 41-year-old, female with a past medical history significant for chronic back pain, previously on narcotics , injection drug usage with heroin last use was a little more than 20 days ago, lupus not on therapy, Crohn's disease not on therapy, Madelyn-Danlos, fibromyalgia. She presented to the hospital on the with multiple skin abscesses on her forearms, where she had used injection drug usage. She was apparently just in [facility] for the past 20 days, and was released on the , and then immediately came here to the hospital, as she was not feeling well. She states over the past 10 days she has had fevers ranging up to 101 or shaking chills. She also notice these swellings of her forearms which were painful. She was tachycardic to 122 on admission, and had an elevated white blood cell count of 20,000. Blood cultures x2 sets were drawn, and 1 out of 4 bottles is now growing out a yeast species, preliminarily identified as Dalila albicans. The patient was given a dose of micafungin this morning. Infectious Disease is now consulted for further evaluation and opinion. The patient also had an I and D of her skin abscess done on December [address] Benton. The culture growing out MRSA. The patient was previously on vancomycin, and then transitioned to Bactrim yesterday. The patient does describe some blurring of vision 10 days ago, which is slightly improved over the past 5 days. She also complained of some loose stools over the past 10 days as well, and some intermittent abdominal cramping. She states that she has had 1 loose stool since she has been here and none since then. Infectious Disease is now consulted for further assessment and opinion regarding above. REVIEW OF SYSTEMS: GENERAL: She has chronic headaches, which are at her baseline. EYES: As above. ENT: She has several missing teeth. Denies any pain involving the gum or her teeth at this point. Denies any sore throat, difficulty swallowing. CARDIOVASCULAR: Denies any chest pain or rapid heartbeat. RESPIRATORY: Denies increasing shortness of breath, cough, sputum production. She has these at baseline. ABDOMEN: No nausea or vomiting. No current abdominal pain at present. She has not had a big bowel movement since she has been here. : No dysuria or hematuria. BACK: Does complain of diffuse body aches in general, which also includes her back pain. MUSCULOSKELETAL: Does have some joint pain involving her knees, which she feels are new. There is no joint swelling. SKIN: As above. The rest of 10-point review of systems essentially negative except at above. PAST MEDICAL HISTORY: Lupus not on therapy, Crohn's disease not on therapy, Madelyn-Danlos syndrome, history of chronic back pain with previous history of narcotics, now she states she just uses heroin for relief, fibromyalgia, degenerative disk disease, osteoporosis, history of MRSA infections in the past. PAST SURGICAL HISTORY: Significant for bilateral tubal ligation, hysterectomy, appendectomy, tonsillectomy, adenoidectomy. SOCIAL HISTORY: She smokes a pack a day. She does not use alcohol. She uses heroin. She is homeless and was recently in [facility] for the past 20 days. FAMILY HISTORY: Significant for coronary artery disease. PHYSICAL EXAMINATION: VITAL SIGNS: Temperature current 36.7, pulse is 80, blood pressure 98/65, respiratory rate is 16, saturation 96% on room air. GENERAL: She is resting comfortably in bed. No acute respiratory distress. Awake, alert, oriented x3. HEENT. Head is normocephalic, atraumatic. Eyes without conjunctival injection. No petechiae. Oropharynx is clear. There is no posterior oropharyngeal erythema or thrush. She has several missing teeth with caries noted. CARDIOVASCULAR: S1, S2. Regular rate and rhythm. No obvious murmurs appreciated. RESPIRATORY: Clear to auscultation bilaterally. No rhonchi or rales appreciated. ABDOMEN: Positive bowel sounds in all quadrants. Soft, nontender nondistended. No obvious organomegaly appreciated. She has a lower abdominal scar, which is well healed. BACK: Some mild CVA tenderness bilaterally. LOWER EXTREMITIES: No lower extremity edema. MUSCULOSKELETAL: No obvious joint effusions. SKIN: Pertinent finding she has multiple swellings over her forearms bilaterally. Some of them are scars. The right forearm is the one where she recently had an I and D. Also continues to have some induration overlying. The incision site is healing. There no erythema or drainage from it. LABORATORY DATA: White blood cell count is now 8.1, hemoglobin 12.2, platelets are 249, neutrophil count is 60%, sodium 141, potassium 4.4, chloride 109, bicarb 22, BUN 17, creatinine 0.6. LFTs on admission are within normal range. Urinalysis is unremarkable. Hepatitis screen A, B, and C, along with HIV are negative. Microbiology data: Blood cultures as stated above. Arm swab with MRSA. Sensitivity profile reviewed. Imaging: Abdominal ultrasound done, which shows no specific findings to suggest an obstructive uropathy. Chest x-ray, which is clear with no evidence of pneumonia. ASSESSMENT: 1. Fungemia. 2. Methicillin-resistant Staphylococcus aureus abscess. Status post I and D. 3. Recent history of injection drug usage. PLAN: The has patients already received micafungin, and we will continue this for now. Spoke to Microbiology. They will send for susceptibility profile of the Dalila. . She will also likely need ophthalmic exam at some point, although this may not be able to be done as an inpatient. We will repeat blood cultures in a.m., along with basic labs to follow on therapy. Hopefully can transition over to fluconazole to complete therapy in the outpatient. She may need ADAN. Will review TTE with cardiology. We will continue Bactrim for now, although I suspect this will be a shorter course. Care coordinated with the hospitalist team and the nursing staff. I thank you very much for allowing this opportunity to care for your patient in consultation. /[id number]/MODL MTDD
[2016-12-17 05:23] LABS: % IMMATURE GRANULYOCYTES 0.2 % (0.0-1.1); ABSOLUTE IMMATURE GRANULOCYTES 0.02 10^3/uL (0.00-0.10); ADD DIFF? NO; ADD MORPH? NO; ADD SCAN? NO; ATYPICAL LYMPHOCYTE FLAG 20 (0-99); FRAGMENT RBC FLAG 0 (0-99); HEMATOCRIT 38.9 % (38.0-47.0); HEMOGLOBIN 12.5 g/dL (12.6-16.3); LEFT SHIFT FLG 0 (0-99); LIPEMIA HEMOLYSIS FLAG 80 (0-99); MEAN CELL HEMOGLOBIN 26.6 pg (27.9-34.1); MEAN CELL HEMOGLOBIN CONCENTR. 32.1 g/dL (32.4-36.7); MEAN CELL VOLUME 82.8 fL (81.5-99.8); MEAN PLATELET VOLUME 11.1 fL (8.7-11.7); PLATELET CLUMPS FLAG 20 (0-99); PLATELET COUNT 291 10^3/uL (150-400); RED CELL DISTRIBUTION WIDTH 14.6 % (11.5-15.2)
[2016-12-17 06:11] LABS: ALANINE AMINOTRANSFERASE 36 IU/L (9-52); ALBUMIN 3.7 g/dL (3.5-5.0); ALKALINE PHOSPHATASE 100 IU/L (38-126); ANION GAP 14 mEq/L (8-16); ASPARTATE AMINOTRANSFERASE 27 IU/L (14-46); BILIRUBIN,TOTAL 0.3 mg/dL (0.1-1.4); CALCIUM 9.2 mg/dL (8.5-10.4); CARBON DIOXIDE 24 mEq/l (22-31); CHLORIDE 101 mEq/L (97-110); CREATININE 0.7 mg/dL (0.6-1.0); GLOMERULAR FILTRATION RATE > 60; GLUCOSE 97 mg/dL (70-100); POTASSIUM 4.6 mEq/L (3.5-5.2); SODIUM 139 mEq/L (134-144); TOTAL PROTEIN 6.6 g/dL (6.3-8.2)
[2016-12-17] MEDS ORDERED: BENZOCAINE UNIT DOSE SPRAY HURRICAINE MM ONE (08:11)
[2016-12-17] MEDS ORDERED: MIDAZOLAM 2 MG/2 ML VIAL IVP ONE (08:11)
[2016-12-17] MEDS ORDERED: NS 500 ML IV ONE (08:11)
[2016-12-17] MEDS ORDERED: fentaNYL 100 MCG/2 ML INJ IVP ONE (08:11)
[2016-12-17] MEDS ORDERED: NS 1,000 ML IV ONE (08:12)
[2016-12-17] MEDS: ENOXAPARIN 40 MG/0.4 ML SYR SC SCH ×2 (09:00→09:18)
[2016-12-17] MEDS: SULFAMETHOX/TMP 800/160 MG 1 TAB PO SCH ×2 (09:51→21:13)
[2016-12-17] MEDS: PREGABALIN 100 MG CAP PO SCH ×2 (09:51→21:13)
[2016-12-17] MEDS: NICOTINE 21 MG/24 HR PATCH TD SCH (09:51)
[2016-12-17] MEDS: MULTIVITAMINS 1 EACH TAB PO SCH (09:51)
[2016-12-17] MEDS: oxyCODONE IR 15 MG TAB PO PRN ×3 (09:52→21:24)
--- NOTE | 2016-12-17 09:57 | PCMIDPN ---
Assessment/Plan: # Sepsis secondary to candidemia # Candidemia with visual complaints on admission, now resolved. Source of candidemia IVDU Thickening of the mitral and aortic valves were noted on TTE. --repeat blood cultures today to assess for clearance of candidemia --continue micafungin, awaiting susceptibilities of C albicans --reviewed with patient that she would need a minimum of 2 weeks of IV antibiotics that she would have to reside in the hospital to receive. --reassess safety of PICC line placement after blood cultures negative for 48 hours --will await results of ADAN, if negative likely need eye exam to rule out endophthalmitis as that would change duration of therapy. # MRSA abscess right forearm s/p I and D. Minimal residual changes on exam today --currently on Bactrim. Plan to DC tomorrow med micafungin 100mg IV daily, #2 bactrim DS 1 PO BID, #4 MRSA Rx Subjective: patient without specific c/o refused to be NPO this AM so ADAN tomorrow Objective: Vital Signs Temp Pulse Resp BP Pulse Ox 36.7 C 55 L 14 86/51 L 97 12/17/16 07:14 12/17/16 07:14 12/17/16 07:14 12/17/16 07:14 12/17/16 07:14 Laboratory Results 12/17/16 04:00 12/17/16 04:00 12/16/16 12/17/16 12/18/16 05:59 05:59 05:59 Intake Total 1000 900 Output Total 1400 Balance 1000 -500 - Physical Exam General Appearance: alert, no apparent distress EENT: poor dentition, No scleral icterus, No thrush Respiratory: lungs clear Neck: supple Cardiac/Chest: regular rate, rhythm, No systolic murmur Extremities: swelling (mild swelling R forearm at I&D site), No pedal edema Abdomen: non-tender, soft Skin: signs of IVDA, No rash Neuro/Psych: alert, normal mood/affect, oriented x 3 ICD10 Worksheet Patient Problems: Problems Problem Status Onset Fever Acute IVDU (intravenous drug user) Acute Methicillin resistant Staphylococcus aureus infection Acute ~12/13/16 Tachycardia Acute Cellulitis of foot without toes, left Acute Dental infection Acute Foot pain, left Acute MRSA (methicillin resistant Staphylococcus aureus) Acute 04/08/16 Right facial swelling Acute
[2016-12-17] MEDS: MICAFUNGIN NA 100 MG in NS 100 ML IV SCH ×2 (13:18→14:57)
[2016-12-17] MEDS ORDERED: BISACODYL 10 MG SUPP PR PRN (14:43)
[2016-12-17] MEDS ORDERED: MAGNESIUM HYDROXIDE 30 ML UDCUP PO PRN (14:43)
[2016-12-17] MEDS ORDERED: NICOTINE POLACRILEX 2 MG GUM B PRN (14:47)
--- NOTE | 2016-12-17 14:56 | HOSPPROG ---
Hospitalist Progress Note Assessment/Plan: # candidemia - mucafungin for 2 weeks per ID - ADAN on Thursday - check ECG # RUE abscess - MRSA -s/p I&D - wound care -PO Bactrim - likely dc tomorrow # IVDU -HIV and hepatitis panel negative # chronic pain with continuous narcotic dependency - she wants to get off narcotics, she is getting clonidine, tizanidine, robaxin hydroxyzine for withdrawal # crohn's disease # SLE # Madelyn Danlos # left flank pain -UA and renal US negative Subjective: no BM for a few days; complains of significant anxiety Objective: Vital Signs Temp Pulse Resp BP Pulse Ox 36.9 C 95 18 104/70 95 12/17/16 11:20 12/17/16 11:20 12/17/16 11:20 12/17/16 11:20 12/17/16 11:20 Laboratory Results 12/17/16 04:00 12/17/16 04:00 12/16/16 12/17/16 12/18/16 05:59 05:59 05:59 Intake Total 1000 900 Output Total 1400 Balance 1000 -500 PT 13.1 SEC (12.0-15.0) 12/13/16 03:10 INR 1.00 (0.83-1.16) 12/13/16 03:10 chart reviewed US reviewed ICD10 Worksheet Patient Problems: Problems Problem Status Onset Methicillin resistant Staphylococcus aureus infection Acute ~12/13/16 Foot pain, left Acute Cellulitis of foot without toes, left Acute Tachycardia Acute MRSA (methicillin resistant Staphylococcus aureus) Acute 04/08/16 Dental infection Acute Right facial swelling Acute IVDU (intravenous drug user) Acute Fever Acute
[2016-12-17] MEDS: METHOCARBAMOL 750 MG TAB PO PRN ×2 (15:12→21:13)
[2016-12-17] MEDS: POLYETHYLENE GLYCOL 3350 17 GM PKT PO PRN (15:12)
[2016-12-17] MEDS: hydrOXYzine HCL 25 MG TAB PO PRN ×2 (16:23→22:32)
--- NOTE | 2016-12-17 16:31 | CPEKG ---
Heart Rate: 104 RR Interval: 577 P-R Interval: 128 QRSD Interval: 78 QT Interval: 340 QTC Interval: 448 P [place]: 77 QRS [place]: 55 T [place]: 68 EKG Severity - ABNORMAL ECG - EKG Impression: SINUS TACHYCARDIA Electronically Signed By: Sandeep Cota 18-Dec-2016 17:24:13
[2016-12-17] MEDS: SENNOSIDES/DOCUSATE SODIUM TAB PO SCH (21:13)
[2016-12-17] MEDS: NORTRIPTYLINE HCL 50 MG CAP PO SCH (21:13)
[2016-12-17] MEDS: QUEtiapine FUMARATE 100 MG TAB PO SCH (21:13)
[2016-12-17] MEDS: LACTULOSE 20 GM/30 ML UDCUP PO PRN (22:33)
[2016-12-18] MEDS: hydrOXYzine HCL 25 MG TAB PO PRN ×3 (08:17→23:05)
[2016-12-18] MEDS: PREGABALIN 100 MG CAP PO SCH ×2 (08:19→21:31)
[2016-12-18] MEDS: SULFAMETHOX/TMP 800/160 MG 1 TAB PO SCH ×2 (08:20→21:32)
[2016-12-18] MEDS: SENNOSIDES/DOCUSATE SODIUM TAB PO SCH ×2 (08:20→21:32)
[2016-12-18] MEDS: NICOTINE 21 MG/24 HR PATCH TD SCH (08:21)
[2016-12-18] MEDS: MULTIVITAMINS 1 EACH TAB PO SCH (08:21)
[2016-12-18] MEDS: ENOXAPARIN 40 MG/0.4 ML SYR SC SCH (08:22)
[2016-12-18] MEDS: MICAFUNGIN NA 100 MG in NS 100 ML IV SCH (09:27)
[2016-12-18] MEDS: POLYETHYLENE GLYCOL 3350 17 GM PKT PO PRN (11:01)
--- NOTE | 2016-12-18 12:40 | PCMIDPN ---
Assessment/Plan: Assessment: Dalila albicans fungemia. Source of this infection is intravenous drug use. Patient's duration of symptoms of malaise and weight loss have been at least 3 weeks. I am concerned that she has had persistent fungemia for a good portion of this time. Await transesophageal echocardiogram tomorrow. Because she is complaining of bilateral blurriness of vision she needs an ophthalmological exam. [facility]30 [facility].m. for evaluation. Plan: 1. Continue micafungin. 2. I exam this afternoon. 3. Follow up on repeat blood cultures. 4. Follow-up with results of transesophageal echocardiogram tomorrow. 12/18/16 18:30 Subjective: Patient is resting in her hospital bed. She states that she feels slightly better. Still exhausted and ill. No fevers or chills. Objective: Micafungin # 2 Vital Signs Temp Pulse Resp BP Pulse Ox 36.6 C 103 H 18 111/65 94 12/18/16 09:03 12/18/16 09:03 12/18/16 09:03 12/18/16 09:03 12/18/16 09:03 Laboratory Results 12/17/16 04:00 12/17/16 04:00 12/17/16 12/18/16 12/19/16 05:59 05:59 05:59 Intake Total 900 2000 Output Total 1400 Balance -500 2000 - Physical Exam General Appearance: WD/WN, alert, no apparent distress, thin, non-toxic Respiratory: lungs clear, normal breath sounds, No respiratory distress Cardiac/Chest: regular rate, rhythm, systolic murmur, No tachycardia Skin: normal color, warm/dry, rash Neuro/Psych: alert, normal mood/affect, oriented x 3 ICD10 Worksheet Patient Problems: Problems Problem Status Onset Fever Acute IVDU (intravenous drug user) Acute Methicillin resistant Staphylococcus aureus infection Acute ~12/13/16 Tachycardia Acute Cellulitis of foot without toes, left Acute Dental infection Acute Foot pain, left Acute MRSA (methicillin resistant Staphylococcus aureus) Acute 04/08/16 Right facial swelling Acute
--- NOTE | 2016-12-18 13:58 | HOSPPROG ---
Hospitalist Progress Note Assessment/Plan: # candidemia - mucafungin for 2 weeks per ID - ADAN tomorrow - vision changes - ophtho eval today # RUE abscess - MRSA -s/p I&D - wound care -PO Bactrim - dc per ID # IVDU -HIV and hepatitis panel negative # chronic pain with continuous narcotic dependency - she wants to get off narcotics, she is getting clonidine, tizanidine, robaxin, ativan and hydroxyzine for withdrawal # crohn's disease # SLE # Madelyn Danlos # left flank pain -UA and renal US negative Subjective: still anxious; complained of some vision changes Objective: Vital Signs Temp Pulse Resp BP Pulse Ox 36.6 C 103 H 18 111/65 94 12/18/16 09:03 12/18/16 09:03 12/18/16 09:03 12/18/16 09:03 12/18/16 09:03 Laboratory Results 12/17/16 04:00 12/17/16 04:00 12/17/16 12/18/16 12/19/16 05:59 05:59 05:59 Intake Total 900 2000 Output Total 1400 Balance -500 2000 PT 13.1 SEC (12.0-15.0) 12/13/16 03:10 INR 1.00 (0.83-1.16) 12/13/16 03:10 - Physical Exam Constitutional: no apparent distress, appears nourished Cardiovascular: regular rate and rhythym, no murmur, rub, or gallop Respiratory: no respiratory distress, no rales or rhonchi, clear to auscultation Gastrointestinal: normoactive bowel sounds, soft, non-tender abdomen, no palpable masses ICD10 Worksheet Patient Problems: Problems Problem Status Onset Methicillin resistant Staphylococcus aureus infection Acute ~12/13/16 Foot pain, left Acute Cellulitis of foot without toes, left Acute Tachycardia Acute MRSA (methicillin resistant Staphylococcus aureus) Acute 04/08/16 Dental infection Acute Right facial swelling Acute IVDU (intravenous drug user) Acute Fever Acute
[2016-12-18] MEDS: LORazepam 1 MG TAB PO PRN ×2 (17:18→23:04)
[2016-12-18 18:47] VITALS: RESP 19
--- NOTE | 2016-12-18 20:12 | GCON ---
[f rep st] CONSULTATION OPHTHALMOLOGY CONSULTATION HISTORY: The patient is a 41-year-old woman referred by Infectious Disease to evaluate and rule out fungal ocular involvement with a history of fungemia. The patient reports some decrease in vision with some dark areas in the peripheral vision. The peripheral vision she sees is what looks like small spots. She also reports her vision seems to be not as sharp as it was in years past when she first had LASIK surgery. She has no pain in her eyes but feels that she has a headache located around the eyes and the sinus area. PAST OCULAR HISTORY: Significant for LASIK surgery in both eyes. PAST MEDICAL HISTORY: 1. Osteoarthritis. 2. Crohn disease. 3. Migraine headache. 4. Depression and anxiety. 5. Posttraumatic stress disorder. 6. MRSA infection involving cellulitis of the foot. 7. Dental infection. 8. Intravenous drug use. ALLERGIES: No known drug allergies. OCULAR MEDICATIONS: None. SYSTEMIC MEDICATIONS: As listed in the chart. REVIEW OF SYSTEMS: Significant for fatigue and headache. EXAMINATION: OCULAR: Visual acuity: 20/20 -2, right eye. 20/20, left eye, without correction at distance. Pupils are 5 mm, constricting to 2 mm in both eyes with with no afferent pupillary defect. Ocular motility is full. Muscle balance is orthophoric. Confrontation visual jewell are normal and full in both eyes. Intraocular pressure is 8 in both eyes by Goldmann applanation. Both eyes were dilated with tropicamide 1% and phenylephrine 2.5% at 4:40 p.m. Slit-lamp exam: Normal lids and ocular surface, normal conjunctivae, normal cornea. Anterior chamber is deep and quiet in both eyes. Irises are clear and normal in both eyes. The lenses are clear in both eyes. Dilated funduscopic examination shows a normal-appearing optic nerve and retina in both eyes. There was clear vitreous with no evidence of ocular infection. At this time, patient has no evidence of ocular fungal involvement and has good visual acuity in both eyes without other ocular problems. /[id number]/MODL MTDD
[2016-12-18 20:30] VITALS: BP 135/81; PULSE 108; TEMP 97.7; O2SAT 93
[2016-12-18] MEDS: NORTRIPTYLINE HCL 50 MG CAP PO SCH (21:32)
[2016-12-18] MEDS: QUEtiapine FUMARATE 100 MG TAB PO SCH (21:32)
[2016-12-18] MEDS: LACTULOSE 20 GM/30 ML UDCUP PO PRN (21:33)
--- NOTE | 2016-12-19 00:21 | PDHOSCONS ---
Hospitalist Consult Hospitalist Consult: Oleksandr cover: Called to bedside by LYSSA. Patient found smoking cigarettes in room. When asked to stop, patient refused and stated she rather leave hospital than quit smoking. She refused counseling on the risks and benefits of leaving, although she did sign AMA form. She understood severity of disease but stated there was nothing we could do to persuade her to stay.
--- NOTE | 2016-12-19 09:38 | ASDISCHSUM ---
Discharge Information Plan Status:Homeless/Snf Medically Cleared to Leave: Discharge Date:12/19/2016 12:15 AM CM D/C Disposition:Home, Routine, Self-Care ADT D/C Disposition:Against Medical Advice Projected Discharge Date:12/16/2016 11:00 AM Transportation at D/C:Self Discharge Delay Reason: Follow-Up Date:12/16/2016 11:00 AM Discharge Slot: Final Diagnosis: Placement Information Referral Type:Outpatient Center/Clinic Referral ID:[id number] Provider Name: Address 1: Phone Number: Address 2: Fax Number: City: Selection Factors: State: Patient Contact Information Contact Name:AUSTINKVNG Relationship: Address: Home Phone: Work Phone: City: Alternate Phone: [facility] Code: Email: Financial Information Financial Class: Primary Plan Desc:MEDICARE INPATIENT Primary Plan Number:[id number] Secondary Plan Desc: Secondary Plan Number: Assessment Information [facility] CM Progress Note CM Note CM Note Notes: 12/14/2016 Case Management Note: Met w/patient. [facility] "I came right here from the half-way when they let me go". Pt reports half-way sentence of 20 days. Reports on night of arrest pt was w/friend who the police gave all pt belongings to including credit cards and phone. Pt unable to contact friend and unable to provide contact information of friend to case management. Prior to arrest pt had leased apartment in [place]. Pt reports that she is currently homeless d/t missed rent payment while in half-way. Pt receives SSDI monthly, approximately $850. Patient is planning to change SSDI payments to prepayment card from auto deposit into bank account d/t friend "using my debit cards". Pt has had no contact w/friend since night of arrest. Pt reports no contact with children. 20 y.o is living in [place] and 18 y.o. is living in [place]. Pt states both parents and no longer in contact with siblings Discussed d/c poc from May 2016 admission at [facility]. Pt states that treatment centers felt she was to medically complex and would not accept for treatment. Pt reports finding one medical treatment center for detox in [place] but did not attend d/t responsibilities for youngest child. Pt states that her preferred d/c is to an inpt detox facility. Pt states she has been "clean for 21 days" and is motivated to participate in inpatient recovery programs. Case Management to research possible placements on Thursday. Case Management to follow. Date Signed: 12/14/2016 03:05 PM Electronically Signed By:Yoselyn Liu RN [facility] CM Progress Note CM Note CM Note Notes: 12/15/2016 Case Management Note: Met w/pt. Pt d/c today. Case Management faxed referrals o Thursday to the following at pt request for inpatient substance abuse treatment: [facility] [phone] [facility] [phone] [facility] [phone] [facility] [phone] [facility] [phone] CeDAR: out of pocket costs $30,000 All replied that Medicare insurance is obstacle to inpatient treatment options for patient. Several reported pt would not meet inpatient admission criteria due to recent half-way stay w/limited access to illicit drugs. Provided d/c resources to patient for [facility], [place] [facility], [facility], [place] [facility]-way, [facility], [place], Dr. Barajas and Dr. Hopkins, In addition provided all of the above phone numbers and names of facilities. Provided bus pass. Case Management d/c poc: To half-way w/access to community resources. Date Signed: 12/15/2016 09:40 AM Electronically Signed By:Yoselyn Liu RN [facility] CM Progress Note CM Note CM Note Notes: 12/16/2016 Case Management Note: Case Management arranged for Peyton Cabello from [facility] to meet w/patient on 12/15/2016. Peyton can be reached at [phone]. Peyton found placement for pt at inpatient substance abuse treatment centers in [place] and [place]. Pt must transport self. Pt felt this was too complicated. Peyton left info for pt to contact [facility] . Once pt completes assessment intake interview, [facility] will take pt for inpatient substance abuse treatment. Case Management offerred to stay in room for any questions while pt completed phone call, pt refused "stating I'm not awake enough yet". Case Management willing to pay for taxi to facility at d/c from [facility], will need to confirm pt actually completed intake assessment and that pt is accepted for placement. Peyton provided the contact info for a member from her organization to support the patient at d/ with multiple outpatient treatment opportunities. Case management provided info [facility] . Case Management [facility]. They are willing to take the pt free of charge for a 6 month intensive program once pt completes the intake application. Case Management provided info for [facility] locations for outpt drug treatment programs in [place]. At this point it is up to the pt to determine her d/c poc. If she chooses to not fill out the applications or complete the intake assessments the Case Management d/c poc remains: Homeless Snf w/access to community resources. If pt chooses the Snf, IV antifungals will not be an option at d/c. Case Management to follow. 12/15/2016 Case Management Note: Met w/pt. Pt d/c today. Case Management faxed referrals o Thursday to the following at pt request for inpatient substance abuse treatment: [facility] [phone] [facility] in [place] [phone] [facility] [phone] [facility] [phone] [facility] [phone] CeDAR: out of pocket costs $30,000 All replied that Medicare insurance is obstacle to inpatient treatment options for patient. Several reported pt would not meet inpatient admission criteria due to recent half-way stay w/limited access to illicit drugs. Provided d/c resources to patient for [facility], [facility], [facility], [facility] half-way, [facility], [facility], Dr. Barajas and Dr. Hopkins, In addition provided all of the above phone numbers and names of facilities. Provided bus pass. Case Management d/c poc: To half-way w/access to community resources. Date Signed: 12/16/2016 02:37 PM Electronically Signed By:Yoselyn Liu RN Intervention Information Intervention Type:*IM-Signed Date of Service:12/15/2016 11:04 AM Patient Type:Inpatient Staff Member:Tomasa Acosta Hours: Discipline: Severity: Comment:
--- NOTE | 2016-12-19 16:06 | GDS ---
[f rep st] DISCHARGE SUMMARY I did not see the patient on discharge as she left AMA. ALL DIAGNOSES: 1. Candidemia. 2. Right upper extremity abscess growing MRSA. 3. IV drug use. 4. Chronic pain with continuous narcotic dependency. 5. Crohn disease. 6. Lupus. 7. Madelyn-Danlos. 8. Left flank pain. HOSPITAL COURSE: This is a 41-year-old female admitted with chief complaints of nausea, vomiting and fever. 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 Sensitivities on the Dalila are pending; however, she has been treated with micafungin. She had some vision changes, Ophthalmology consult showed no evidence of Dalila involvement of her eyes. She left AMA in the middle of the night without receiving any antibiotics. Our assistant case manager has called the police to inform them, and request that they attempt to locate her and recommend that she return to the hospital for ongoing treatment given the significance of this disease. I attempted to call her on the phone number that we have listed in the chart. However, that phone number does not take incoming calls. I have not been able to find any other way to contact her. I think at the very least, she should get empiric treatment with oral fluconazole if she refuses readmission, though clearly this is inadequate treatment. 1. Right upper extremity abscess growing MRSA. She received a short course of Bactrim for this. That is probably appropriate treatment in addition to the I and D, that she had. 2. IV drug use: Certainly contributing to the social issues around her hospitalization. /[id number]/MODL MTDD
== END 2016-12-19 00:15 | disposition left against medical advice (07) | DRG 868 ==
LOC: F2W 06:02
PROVIDERS: ADMIT Family Medicine; ATTEND Family Medicine
DX: B37.9 Candidiasis, unspecified (principal); L02.413 Cutaneous abscess of right upper limb; F11.20 Opioid dependence, uncomplicated; K50.90 Crohn's disease, unspecified, without complications; Q79.6 Ehlers-Danlos syndromes; B49 Unspecified mycosis; B95.62 Methicillin resistant Staphylococcus aureus infection as the cause of diseases classified elsewhere; G89.29 Other chronic pain; M32.9 Systemic lupus erythematosus, unspecified; G43.909 Migraine, unspecified, not intractable, without status migrainosus; Z72.0 Tobacco use; Z23 Encounter for immunization; Z86.14 Personal history of Methicillin resistant Staphylococcus aureus infection
CPT/HCPCS: 87186-90; 96374; G0008; G0009; G0472; J0690; J1650; J2060; J2248; J2405; J2550; J3370